=== PATIENT | male | born 1955 | race Caucasian/White ===

== ENCOUNTER 2017-01-19 10:02 | Inpatient (IN) | payer OTHER, MEDICAID ==
[2017-01-19] MEDS ORDERED: TRANEXAMIC ACID 1,000 MG in NS 100 ML IV ONE (10:08)
--- NOTE | 2017-01-19 10:12 | EDPHY ---
H & P Constitutional: Initial Vital Signs Temperature (C) 38.5 C H 01/19/17 10:07 O2 Delivery Mode Non-Rebreather Mask O2 (L/minute) 10 Medical Decision Making ED Course/Re-evaluation: CHIEF COMPLAINT: Hematemesis, AMS, hypotension. HISTORY OF PRESENT ILLNESS: The patient is a 62-year-old male with baseline dementia who presents via EMS from [facility] for several days of hematemesis. Today his mental status became acutely altered. Per EMS his only complaint is lower back pain and he mostly is able to respond only with yes and no. EMS was unable to palpate a blood pressure. He is not anticoagulated on blood-thinners. EMS established 2 IVs and administered 250ml NS en route. They placed him on 6L nasal cannula oxygen as he was in the 70s on room air. History severely limited due to the patient's clinical condition. REVIEW OF SYSTEMS: Unobtainable secondary to patient's clinical condition. PHYSICAL EXAM: HR, BP, O2 Sat, RR. Temp noted General Appearance: Alert, groaning. Head: Atraumatic without scalp tenderness or obvious injury Eyes: Pupils equal, round, reactive to light and accommodation, EOMI, no trauma , no injection. Ears: Clear bilaterally, no perforation, normal landmarks Nose: Atraumatic, no rhinorrhea, clear. Throat: There is no erythema or exudates, no lesions, normal tonsils, mucus membranes moist. Neck: Supple, 2+ carotid upstroke, nontender, no lymphadenopathy. Respiratory: No retractions, no distress, no wheezes, and no accessory muscle use. Lungs are clear to auscultation bilaterally. Cardiovascular: Regular rate and rhythm, no murmurs, rubs, or gallops. Bilateral carotid, radial, dorsalis pedis, and posterior tibial pulses intact. Good capillary refill all extremities. Gastrointestinal: Abdomen is soft, non-distended, no masses, no rebound, no guarding, no peritoneal signs. Abdomen exquisitely tender. Musculoskeletal: Normal active ROM of all extremities. Mottling of lower extremities. Lower extremities warm. Neurological: The patient has normal DTRs and non-focal cranial nerves, motor, sensory, and cerebellar exam. Answers basic questions and follows basic commands. Skin: No rashes, good turgor, no nodules on palpation. Past medical history:TBI with hemiplegia, dementia, CVAs. Past surgical history: Unknown. Family history:Non-contributory. Social history:Lives at [facility]. DIAGNOSTICS/PROCEDURES/CRITICAL CARE TIME: Study: CT of the chest/abdomen/pelvis. Indication: Hematemesis, hypotension. Results: 1. Fluid distention of the esophagus and stomach without evidence of obstruction. 2. Probable mild ileus. 3. Large stool ball in the rectum. 4. Bronchitis with mucous plugging and basilar atelectasis with tiny effusions. 5. Nodular consolidation in the superior segment left lower lobe, most likely inflammatory or infectious. Follow up CT is recommended in 3 months to document resolution. 6. Small volume of ascites. 7. Additional findings as above. The study was read by the radiologist, Dr. Sol. I viewed the images myself on the PACS system. DIFFERENTIAL DIAGNOSIS: The differential diagnosis for the patient's upper GI bleeding included but was not limited to ulcer disease, gastritis, Holley-Kumari tear, and esophageal varices. MEDICAL DECISION MAKING: I met EMS on arrival and obtained a report from the associate designer. The patient was awake and groaning, but unable to answer any questions. He follows basic commands well. On exam his lower extremities are mottled and his abdomen is exquisitely tender. He has no palpable blood pressure and has thready pulses. He is tachycardic at 160. The patient is a DNR and it is unclear whether initiating mass transfusion protocol with blood products would be against his wishes. 1006: Mass transfusion protocol initiated. TXA 1gm IV ordered to be administered over 10 minutes. Another 1gm will be administered over 8 hours. Labs ordered. Blood bank contacted. 1010: I consulted with Case Management and the ER Director concerning the ethics of resuscitation. They both believe transfusion resuscitation is indicated and ethical. 2 units O- ordered. 1014: ISTAT creatinine is 2.6, probably due to multiple days of hyperperfusion. Abdomen/pelvis and chest non-contrast CTs ordered. The blood bank has been contacted multiple times at this point. Rectal temp 38.5. 1019: Blood at bedside with 3 units O+. Right groin Cordis catheter placed by myself. This is a resuscitate line. Blood pressure now 94/61. 1033: Protonix 80mg IV Drip administered. Plasma at bedside. Patient sent to CT. 1044: Case Management has spoken to the patient's brother who reports that mass transfusion was an acceptable measure to take. Patient's Hct is 51, which could be due to bleeding for a few days and being severely dehydrated. 1126: Consulted with Dr. John, hospitalist. He accepts admission. 1133: Consulted with Dr. Davis, GI. He will scope the patient in the next half hour. 1136: On NG tube placement the patient vomited a large amount of blood. I spent a total of 45 minutes of critical care time including but not limited to obtaining history, performing a physical exam, ordering interventions and the bedside monitoring of those interventions, collecting and interpreting tests and discussion with consultants but not including time spent performing procedures. - Data Points Laboratory Results: 01/19/17 01/19/17 01/19/17 10:30 10:30 10:30 WBC Pending RBC Pending Hgb Pending POC Hgb Hct Pending POC Hct MCV Pending MCH Pending MCHC Pending RDW Pending Plt Count Pending MPV Pending Neut % (Auto) Pending Lymph % (Auto) Pending Ellis % (Auto) Pending Eos % (Auto) Pending Baso % (Auto) Pending Nucleat RBC Rel Count Pending Absolute Neuts (auto) Pending Absolute Lymphs (auto) Pending Absolute Monos (auto) Pending Absolute Eos (auto) Pending Absolute Basos (auto) Pending Absolute Nucleated RBC Pending Immature Gran % Pending Immature Gran # Pending PT Pending INR Pending APTT Pending TEG Specimen Type Pending TEG Sample Type Pending TEG R Time Pending TEG K Time Pending TEG Alpha Angle Pending TEG Max Amplitude Pending Fibrinogen Pending Puncture Site pCO2 pO2 Total CO2 ABG pH ABG O2 Saturation ABG Base Excess POC Sodium POC Potassium POC Chloride Bicarbonate POC BUN POC Creatinine POC Glucose Ionized Calcium Patient ABO/Rh Antibody Screen Crossmatch IS Only 01/19/17 01/19/17 01/19/17 10:30 10:10 10:05 WBC RBC Hgb POC Hgb 17.3 gm/dL gm/dL (14.5-17.3) Hct POC Hct 51 % H % (42.8-50.6) MCV MCH MCHC RDW Plt Count MPV Neut % (Auto) Lymph % (Auto) Ellis % (Auto) Eos % (Auto) Baso % (Auto) Nucleat RBC Rel Count Absolute Neuts (auto) Absolute Lymphs (auto) Absolute Monos (auto) Absolute Eos (auto) Absolute Basos (auto) Absolute Nucleated RBC Immature Gran % Immature Gran # PT INR APTT TEG Specimen Type TEG Sample Type TEG R Time TEG K Time TEG Alpha Angle TEG Max Amplitude Fibrinogen Puncture Site Pending pCO2 Pending pO2 Pending Total CO2 Pending ABG pH Pending ABG O2 Saturation Pending ABG Base Excess Pending POC Sodium Pending 151 mEq/L H mEq/L (134-144) POC Potassium Pending 3.5 mEq/L mEq/L (3.3-5.0) POC Chloride 114 mEq/L H mEq/L (96-108) Bicarbonate Pending POC BUN 47 mg/dL H mg/dL (7-23) POC Creatinine 2.6 mg/dL H mg/dL (0.8-1.5) POC Glucose 113 mg/dL H mg/dL (70-100) Ionized Calcium Pending Patient ABO/Rh A POSITIVE Antibody Screen NEGATIVE Crossmatch IS Only See Detail Medications Given: Discontinued Medications Tranexamic Acid 1,000 mg/ (Sodium Chloride) 110 mls @ 660 mls/hr IV ONCE ONE Stop: 01/19/17 10:17 Last Admin: 01/19/17 10:12 Dose: 110 mls Point of Care Test Results: 01/19/17 10:05 POC Sodium 151 H POC Potassium 3.5 POC Chloride 114 H POC BUN 47 H POC Creatinine 2.6 H POC Glucose 113 H Departure - Departure Disposition: [facility] Inpatient Acute Clinical Impression: GI bleed Qualifiers: GI bleed type/associated pathology: unspecified gastrointestinal hemorrhage type Qualified Code(s): K92.2 - Gastrointestinal hemorrhage, unspecified Hypotension Qualifiers: Hypotension type: unspecified hypotension type Qualified Code(s): I95.9 - Hypotension, unspecified Condition: Fair Report Scribed for: Willy Sousa Report Scribed by: Vladimir Becerra Date of Report: 01/19/17 Time of Report: 10:16
[2017-01-19] MEDS ORDERED: TRANEXAMIC ACID 1,000 MG in NS 500 ML IV ONE (10:26)
[2017-01-19] MEDS ORDERED: LIDOCAINE 2% 5 ML SDV ONE (10:31)
[2017-01-19] MEDS ORDERED: LETS SOLN TOPICAL 1 EA SYR TP ONE (10:32)
--- NOTE | 2017-01-19 10:56 | CPEKG ---
Heart Rate: 140 RR Interval: 429 P-R Interval: 136 QRSD Interval: 70 QT Interval: 280 QTC Interval: 427 P [place]: 17 QRS [place]: 43 T Wave [place]: 59 EKG Severity - ABNORMAL ECG - EKG Impression: SINUS TACHYCARDIA EKG Impression: LOW VOLTAGE IN FRONTAL LEADS EKG Impression: BORDERLINE R WAVE PROGRESSION, ANTERIOR LEADS EKG Impression: BORDERLINE T ABNORMALITIES, ANTERIOR LEADS EKG Impression: BORDERLINE ST ELEVATION, INFERIOR LEADS Electronically Signed By: Willy Sousa 19-Jan-2017 14:37:01
[2017-01-19] MEDS ORDERED: PANTOPRAZOLE SODIUM 80 MG in NS 100 ML IV SCH (11:00)
[2017-01-19 11:58] LABS: ADD MORPH? NO; ATYPICAL LYMPHOCYTE FLAG 0 (0-99); FRAGMENT RBC FLAG 0 (0-99); HEMATOCRIT 47.1 % (40.0-51.0); HEMOGLOBIN 16.2 g/dL (13.7-17.5); LIPEMIA HEMOLYSIS FLAG 90 (0-99); MEAN CELL HEMOGLOBIN 30.1 pg (27.9-34.1); MEAN CELL HEMOGLOBIN CONCENTR. 34.4 g/dL (32.4-36.7); MEAN CELL VOLUME 87.4 fL (81.5-99.8); MEAN PLATELET VOLUME 10.6 fL (8.7-11.7); PLATELET CLUMPS FLAG 0 (0-99); PLATELET COUNT 202 10^3/uL (150-400); RED BLOOD CELL COUNT 5.39 10^6/uL (4.40-6.38)
[2017-01-19 12:04] LABS: ADD DIFF? YES; ADD SCAN? NO; LEFT SHIFT FLG 300 (0-99)
[2017-01-19 12:14] LABS: INR 1.23 (0.83-1.16); PROTIME(PATIENT) 15.5 SEC (12.0-15.0)
[2017-01-19 12:34] LABS: GIANT PLATELETS PRESENT; LARGE PLATELETS PRESENT; PLATELET ESTIMATE ADEQUATE (ADEQ)
[2017-01-19] MEDS ORDERED: PROMETHAZINE HCL 25 MG/ML INJ IVP PRN (12:35)
[2017-01-19] MEDS ORDERED: ONDANSETRON 4 MG/2 ML VIAL IVP PRN (12:35)
[2017-01-19] MEDS ORDERED: ERTAPENEM 0.5 GM in NS 100 ML IV SCH (13:00)
[2017-01-19] MEDS ORDERED: ERTAPENEM 1 GM in NS 100 ML IV SCH (13:00)
--- NOTE | 2017-01-19 13:08 | GHP ---
DATE OF ADMISSION: 01/19/2017 CHIEF COMPLAINT: Hematemesis. HISTORY OF PRESENT ILLNESS: This is a 62-year-old male who was transported to the emergency department by EMS from [facility] after he reportedly had several days of hematemesis. During the time of my exam, the patient is confused, making it impossible to obtain a history from the patient. The history was obtained via review of the ER chart. Apparently the patient had become more confused this morning. He does have a history of a traumatic brain injury. Per EMS, the patient reported some low back pain and was only able to respond with yes and no answers. In the field, they were unable to obtain a blood pressure. He was started on IV fluids en route. On initial presentation to the emergency department, his blood pressure was too low to read. He was noted to be febrile. An NGT was placed where he was found to have a large amount of blood in his stomach. He was subsequently transfused with 2 units of packed red blood cells and 3 units of FFP, as well as 1 unit of platelets. PAST MEDICAL HISTORY: Traumatic brain injury with hemiplegia, dementia, stroke. PAST SURGICAL HISTORY: Unobtainable. HOME MEDICATIONS: Unobtainable. ALLERGIES: Unobtainable. SOCIAL HISTORY: The patient resides at [facility]. Other social history was unobtainable. REVIEW OF SYSTEMS: Comprehensive 10-point review of systems was attempted. However, this was unobtainable due to the patient's mentation. PHYSICAL EXAM: VITAL SIGNS: Blood pressure 99/88, pulse of 141, respiratory rate 25, O2 saturation is 92% on 10 L non-rebreather, temperature currently afebrile, T-max 38.5. GENERAL: Ill appearing. HEAD: Normocephalic, atraumatic. EYES: Are PERRLA. MOUTH: Moist mucous membranes. NECK: Supple. CARDIOVASCULAR: Tachycardic, S1 and S2. No JVD. PULMONARY: Lungs are clear with diminished breath sounds bilaterally. No wheezes or rales. ABDOMEN: Is slightly distended. There is tenderness to palpation, without guarding or rebound. Bowel sounds are hyperactive. EXTREMITIES: No lower extremity edema. No clubbing or cyanosis. NEURO: Unable to assess since the patient is not following commands. SKIN: Clear. No rashes. DIAGNOSTICS: WBC is 4.3, hemoglobin 16.2, hematocrit 47.1, platelets 202. INR 1.23. Fibrinogen was high. ABGs pending. Sodium 151, potassium 3.5, chloride 114, BUN 47, creatinine 2.6, glucose 113. EKG, which I visualized and personally interpreted, shows sinus tachycardia with T-wave abnormalities in V1 and V2, with some subtle ST elevation in leads [address] of the abdomen and pelvis shows fluid distention of the esophagus and stomach, without evidence for obstruction. There is a mild ileus. A large stool ball in the rectum. There is a nodular consolidation in the superior segment of the left lower lobe. Refer to report for full details. ASSESSMENT: This is a 62-year-old male with a history of traumatic brain injury , who presents with: 1. Shock, most likely hemorrhagic given his reported hematemesis vs sepsis 2. Acute encephalopathy, history of traumatic brain injury. 3. Hypernatremia likely due to hypovolemia and dehydration. 4. Suspected acute kidney injury with a BUN of 47 and creatinine of 2.6. 5. Suspected upper gastrointestinal bleed, with CT of the abdomen showing fluid distention of the esophagus and stomach. 6. Nodular consolidation in the superior segment of the left lower lobe of unclear etiology. Query aspiration pneumonia 7. Possible sepsis PLAN: 1. Admit to the intensive care unit. 2. Dr. Son Davis from [facility] has been consulted for endoscopy. 3. Start IV Protonix as well as octreotide. 4. Check LFTs. 5. Will start maintenance hypotonic fluids and monitor sodium. 6. Will attempt to obtain his medical records. 7. Avoid nephrotoxins and monitor kidney function. 8. Send urinalysis. 9. Send Blood Cultures, Lactic Acid, and start empiric Invanz for possible aspiration pneumonia 10. Will hold chemical DVT prophylaxis in the setting of suspected acute bleeding. /[id number]/MODL MTDD
[2017-01-19] MEDS ORDERED: NS 1,000 ML IV ONE ×3 (13:16→21:11)
[2017-01-19 13:24] LABS: HEMOGLOBIN 17.2 g/dL (13.7-17.5)
[2017-01-19 14:07] LABS: ALANINE AMINOTRANSFERASE 30 IU/L (21-72); ALBUMIN 3.2 g/dL (3.5-5.0); ALKALINE PHOSPHATASE 71 IU/L (38-126); ASPARTATE AMINOTRANSFERASE 24 IU/L (17-59); BILIRUBIN,TOTAL 4.9 mg/dL (0.1-1.4); BILIRUBIN-CONJUGATED 2.4 mg/dL (0.0-0.5); BILIRUBIN-UNCONJUGATED 2.5 mg/dL (0.0-1.1); TOTAL PROTEIN 6.4 g/dL (6.3-8.2)
[2017-01-19 14:15] LABS: COLOR AMBER; LEUKOCYTE ESTERASE,URINE 2+ (NEGATIVE); NITRITE,URINE NEGATIVE (NEGATIVE)
[2017-01-19 14:18] LABS: LACGHOST ORDER
[2017-01-19 14:19] LABS: TROPONIN I < 0.012 ng/mL (0-0.034)
[2017-01-19 14:55] LABS: BACTERIA 3+ /hpf (NONE SEEN); MUCUS 4+ /lpf (NONE-1+); RBC,URINE 15-25 /hpf (0-3); WBC,URINE 50-182 /hpf (0-3)
[2017-01-19 15:00] LABS: HYALINE CASTS >182 /lpf (0-1)
[2017-01-19] MEDS ORDERED: NS 1,000 ML BAG *FOR SEPSIS ORDER SET ONLY IV ONE (15:37)
[2017-01-19] MEDS ORDERED: PROPOFOL/EMULSION 500 MG/50 ML BOTTLE IV ONE (16:16)
[2017-01-19] MEDS ORDERED: fentaNYL 100 MCG/2 ML INJ ONE (16:16)
--- NOTE | 2017-01-19 16:39 | GCON ---
GI CONSULTATION DATE OF CONSULTATION: 01/19/2017 REFERRING PHYSICIAN: Ricardo John MD REASON FOR CONSULTATION: Acute melena and hematemesis. HISTORY OF PRESENT ILLNESS: The patient is a 62-year-old gentleman who was transferred to the emergency room today from [facility] after several days of hematemesis. He was noted to be hypotensive on arrival in the emergency room. NG tube was placed, and a large amount of blood was lavaged out of the stomach. He was passing melena. He received 2 units of packed red blood cells and 3 units of FFP as well as 1 unit of platelets acutely for resuscitation as well as aggressive IV hydration. He was transferred to the intensive care unit. I was asked to see the patient by Dr. John for further evaluation and treatment of his GI bleed. The patient was unable to communicate with me today and could not respond coherently. We do not have records of his medications at [facility] nor his allergies. PAST MEDICAL HISTORY: We do know that his past medical history is significant for posttraumatic brain injury with left hemiplegia, dementia, and stroke. PAST SURGICAL HISTORY: Unknown. SOCIAL HISTORY: Resides at [facility]. He does not smoke tobacco or drink alcohol. FAMILY HISTORY: Patient unable to respond to my questions. REVIEW OF SYSTEMS: Unobtainable for a comprehensive review of systems. PHYSICAL EXAMINATION: VITAL SIGNS: On my examination today, temperature 37.6 Celsius, pulse 141, blood pressure 99/88, respiratory rate was 25, O2 saturation 92% on 10 L. GENERAL: He is a disheveled-appearing gentleman with blood caked on his mouth and chest. He is looking in acute distress. INTEGUMENT : Skin cool, moist. HEENT: Head atraumatic, normocephalic. Pupils equal, round, reactive to light. EOMs intact. Nares patent. NG tube in right naris. Mucous membranes moist. Dentition poor. NECK: Supple. Trachea midline. LYMPHATIC: No palpable cervical or axillary adenopathy. PULMONARY: Clear to percussion and auscultation. CARDIOVASCULAR: Rapid rate. Normal S1, S2, without murmur. Peripheral pulses strong bilaterally. No pedal edema. GASTROINTESTINAL TRACT: Positive bowel sounds. No liver edge or spleen tip palpable. No masses or tenderness or rebound noted. MUSCULOSKELETAL: No deformity of the joints. Moved all 4 extremities. NEURO: Patient did have weakness in the left lower extremity. Otherwise, alert, though unable to tell if the patient was oriented to time, person, or place. LABS: White count 4.3, hemoglobin 16.2, hematocrit 47.1, platelets 202,000. PT 15.5, INR 1.23, PTT 26. Sodium 151, potassium 3.5, chloride 114, creatinine 2.6, BUN 47, glucose 113, total bilirubin 4.9, conjugated 2.4, unconjugated 2.5 , AST 24, ALT 30, ALP 71, albumin 3.2, total protein 6.4, troponin I less than 0.012. IMPRESSION: 1. Acute upper gastrointestinal bleed. Rule out peptic ulcer disease. 2. Acute renal insufficiency. 3. Elevated bilirubin with normal AST and ALT, query Gilbert. 4. Traumatic brain injury with status post hemiplegia, dementia, and stroke. RECOMMENDATIONS: 1. IV PPI therapy. 2. Aggressive IV hydration. 3. Esophagogastroduodenoscopy urgently. Due to critical nature of patient's medical condition we will need to perform emergent EGD endotracheal intubation to protect airway and manage medical instability. /[id number]/MODL MTDD
[2017-01-19] MEDS ORDERED: MIDAZOLAM 2 MG/2 ML VIAL ONE (16:50)
--- NOTE | 2017-01-19 16:50 | POSTOPPROG ---
Post Op Note Date of Operation: 01/19/17 Surgeon: Son Davis Viscosity Inspector: None Anesthesiologist: Dr Lal Anesthesia: Other (Specify) (IV General with ET intubation.) Pre-op Diagnosis: Melena, hematemesis. Post-op Diagnosis: 1. Same 2. Proximal gastric ulcer with bleed(clipped) 3. esophageal ulcers Indication: Hematemesis, melena. Procedure: EGD with endoclip x 2 and bx. Findings: 1. with bleed(endo clipped x 2). 2. Multiple esophageal ulcers. Inf/Abcess present in the surg proc area at time of surgery?: No Depth: Superfical (Skin SQ) EBL: Minimal Complications: None Specimen(s): Random gastric for h. pylori.
[2017-01-19] MEDS ORDERED: DEXMEDETOMIDINE HCL 400 MCG in NS 100 ML IV SCH ×2 (17:00→20:00)
--- NOTE | 2017-01-19 19:09 | GPN ---
DATE OF PROCEDURE: 01/19/2017 PROCEDURE PERFORMED: Esophagogastroduodenoscopy with control of hemorrhage (Endoclip x2) and random biopsies. PREOPERATIVE DIAGNOSIS: Melena, hematemesis, and post hemorrhagic anemia. POSTOPERATIVE DIAGNOSIS: 1. Melena, hematemesis, and post hemorrhagic anemia. 2. Proximal gastric ulceration on lesser curve of the body of the stomach with visible vessel. Hem ostasis achieved with the endoclipping x2. 3. Confluent ulcerations of the distal one-third of the esophagus without active bleeding. 4. Patchy erythema and granularity of the antrum. Biopsy to rule out Helicobacter pylori gastritis . CLINICAL HISTORY/INDICATION: The patient is a 62-year-old gentleman who was admitted to the [facility] through the emergency room today after several days' history of hematemesis as well as new onset o f melena. He had an NG tube placed with a large amount of blood lavaged from the stomach. He recei trever 2 units of packed red blood cells and 3 units of FFP as well as 1 unit of platelets with aggress joanne IV resuscitation. He was admitted to the ICU and brought to the endoscopy unit emergently for EGD for evaluation of hi s bleed. The patient is noncommunicative and no known [id number] or family member available. Therefore, procedure was permitted as an emergent procedure and medically necessary. PREOPERATIVE MEDICATIONS: General anesthetic and endotracheal intubation, per Dr. Lal. PROCEDURE FINDINGS: GIF-J 180 video endoscope was inserted into the oropharynx and passed to the pr oximal esophagus under direct visualization. The cervical esophagus and body of the esophagus appea red normal. The distal one-third of the esophagus showed diffuse erythema, granularity, and conflue nt ulcerations without stigmata of bleed or active bleeding. The scope was passed in the stomach. The cardia of the stomach appeared normal. In the body along the lesser curve there was an 8 mm ketan meter ulceration with an adherent red clot with active oozing of bright red blood. Hemostasis was a chieved with application of 2 Endoclips. The remainder of the body of the stomach appeared normal. Antrum showed some patchy erythema and gr anularity. Random antral and fundic biopsies were obtained and placed in formalin to rule out H pyl corinne gastritis. The pyloric channel was deformed. The duodenal bulb showed some shallow erosions in the proximal bowel. The distal bulb appeared normal as did the duodenal sweep to the 3rd portion o f the duodenum. There was no retained blood in the stomach or duodenum on exam today. The scope was withdrawn and removed. The patient tolerated the procedure well and was sent to the r ecovery room in satisfactory condition. IMPRESSION: 1. Hematemesis, melena, and post hemorrhagic anemia secondary to proximal gastric ulceration. Hemo stasis achieved with endoclipping x2. 2. Patchy antral gastritis. Biopsy to rule out Helicobacter pylori. 3. There was mild duodenitis. RECOMMENDATIONS: 1. Clear liquid diet. Advance as tolerated. 2. Protonix 40 mg p.o. b.i.d. 3. Serial H and H. 4. We will follow with you. /[id number]/MODL
[2017-01-19 20:21] LABS: HEMATOCRIT 49.5 % (40.0-51.0); HEMOGLOBIN 16.7 g/dL (13.7-17.5)
[2017-01-19] MEDS ORDERED: PANTOPRAZOLE SODIUM 40 MG TAB PO SCH (21:00)
[2017-01-19] MEDS: PANTOPRAZOLE SODIUM 40 MG in NS 100 ML IV SCH (21:20)
[2017-01-19] MEDS: LORazepam 2 MG/ML INJ IVP PRN (21:20)
[2017-01-19] MEDS: NOREPINEPHRINE BITARTRATE 4 MG in D5W 500 ML IV SCH (22:12)
[2017-01-19 22:15] LABS: ALANINE AMINOTRANSFERASE 22 IU/L (21-72); ALBUMIN 1.9 g/dL (3.5-5.0); ALKALINE PHOSPHATASE 43 IU/L (38-126); ANION GAP 13 mEq/L (8-16); ASPARTATE AMINOTRANSFERASE 17 IU/L (17-59); BILIRUBIN,TOTAL 2.4 mg/dL (0.1-1.4); CALCIUM 7.1 mg/dL (8.5-10.4); CARBON DIOXIDE 19 mEq/l (22-31); CHLORIDE 114 mEq/L (97-110); GLOMERULAR FILTRATION RATE 34; GLUCOSE 82 mg/dL (70-100); POTASSIUM 3.8 mEq/L (3.5-5.2); SODIUM 146 mEq/L (134-144); TOTAL PROTEIN 4.2 g/dL (6.3-8.2)
[2017-01-19] MEDS: PIPERACILLIN/TAZO 3.375 GM/DEX 50 ML IV SCH (22:15)
[2017-01-19 22:28] LABS: BILIRUBIN-CONJUGATED 1.6 mg/dL (0.0-0.5); BILIRUBIN-UNCONJUGATED 0.8 mg/dL (0.0-1.1)
[2017-01-19] MEDS: VANCOMYCIN HCL/NORMAL SALINE 250 ML IV SCH (23:01)
[2017-01-19] MEDS ORDERED: VASOPRESSIN/DEXTROSE 250 ML IV SCH (23:03)
[2017-01-19] MEDS ORDERED: ALBUMIN 25% 200 ML IV ONE (23:03)
[2017-01-19] MEDS ORDERED: ALBUMIN 25% 100 ML SOLN IV ONE (23:11)
--- NOTE | 2017-01-19 23:15 | HOSPPROG ---
Hospitalist Progress Note Assessment/Plan: 62 yo M admitted w hematemesis now w hypotension, elevated lactate c/w severe sepsis sepsis: source is unclear- urine vs lungs vs other received ertapenem, now on vanc zosyn as lives at SNF on levophed start vasopressin give albumin hypotension: as above repeat trop 35' crit care time Subjective: patient w persistent hypotension despite aggressive volume repletion Objective: Vital Signs Temp Pulse Resp BP Pulse Ox 36.9 C 103 H 20 86/61 L 96 01/19/17 23:00 01/19/17 23:00 01/19/17 23:00 01/19/17 23:00 01/19/17 23:00 Laboratory Results 01/19/17 20:13 01/19/17 21:52 01/18/17 01/19/17 01/20/17 05:59 05:59 05:59 Intake Total 7610 Output Total 130 Balance 7480 PT 15.5 SEC (12.0-15.0) H 01/19/17 11:43 INR 1.23 (0.83-1.16) H 01/19/17 11:43 - Physical Exam Constitutional: other (intubated, sedated) Cardiovascular: tachycardia Respiratory: no respiratory distress Genitourinary: burk in urethra Skin: warm Neurologic: No AAOx3 ICD10 Worksheet Patient Problems: Problems Problem Status Onset GI bleed Acute Hypotension Acute
[2017-01-19 23:18] LABS: BASE EXCESS -8.8 mEq/L (-2.5-2.5); BICARBONATE 16 mEq/L (22-26); MEASURED OXYGEN SATURATION 97 % (92-95); PCO2 31 mmHg (34-38); PO2 94 mmHg (65-75); TCO2 17 mEq/L (23-27)
[2017-01-19 23:19] LABS: END TIDAL CO2 27; O2 CONCENTRATIION 65 % (0-100); P/F RATIO 145 RATIO; SIMV YES
[2017-01-19 23:20] LABS: PATIENT RATE 20; PRESSURE SUPPORT 10
[2017-01-19] MEDS ORDERED: methylPREDNISolone SOD SUCC 125 MG/2 ML VIAL IVP ONE (23:35)
[2017-01-19] MEDS ORDERED: methylPREDNISolone SOD SUCC 125 MG/2 ML VIAL ONE (23:36)
[2017-01-20] MEDS: NS 1,000 ML IV SCH ×4 (00:06→23:00)
[2017-01-20] MEDS: NOREPINEPHRINE BITARTRATE 4 MG in D5W 500 ML IV SCH ×2 (01:49→05:12)
[2017-01-20] MEDS: LEVOTHYROXINE 75 MCG TAB PO SCH (04:59)
[2017-01-20] MEDS: LORazepam 2 MG/ML INJ IVP PRN ×2 (04:59→21:05)
[2017-01-20 05:03] LABS: ABSOLUTE NRBC COUNT 0.02 10^3/uL (0-0.01); ADD MORPH? NO; ADD SCAN? YES; ATYPICAL LYMPHOCYTE FLAG 0 (0-99); FRAGMENT RBC FLAG 0 (0-99); HEMOGLOBIN 9.6 g/dL (13.7-17.5); LIPEMIA HEMOLYSIS FLAG 80 (0-99); MEAN CELL HEMOGLOBIN 29.4 pg (27.9-34.1); MEAN CELL VOLUME 91.7 fL (81.5-99.8); MEAN PLATELET VOLUME 10.7 fL (8.7-11.7); NRBC-AUTO% 0.4 % (0.0-0.2); PLATELET CLUMPS FLAG 10 (0-99); PLATELET COUNT 94 10^3/uL (150-400); RED BLOOD CELL COUNT 3.27 10^6/uL (4.40-6.38); RED CELL DISTRIBUTION WIDTH 15.3 % (11.5-15.2)
[2017-01-20 05:06] LABS: LEFT SHIFT FLG 300 (0-99)
[2017-01-20] MEDS: PIPERACILLIN/TAZO 3.375 GM/DEX 50 ML IV SCH ×3 (05:09→22:04)
[2017-01-20 05:52] LABS: ADD DIFF? YES; SCAN POSITIVE
[2017-01-20 05:57] LABS: TOXIC GRANULATION PRESENT
[2017-01-20 06:30] LABS: HEMATOCRIT 41.7 % (40.0-51.0); HEMOGLOBIN 14.3 g/dL (13.7-17.5); MEAN CELL HEMOGLOBIN CONCENTR. 34.3 g/dL (32.4-36.7); MEAN CELL VOLUME 87.6 fL (81.5-99.8); RED BLOOD CELL COUNT 4.76 10^6/uL (4.40-6.38); RED CELL DISTRIBUTION WIDTH 14.7 % (11.5-15.2)
[2017-01-20 06:52] LABS: ALANINE AMINOTRANSFERASE 24 IU/L (21-72); ALBUMIN 2.5 g/dL (3.5-5.0); ALKALINE PHOSPHATASE 32 IU/L (38-126); ANION GAP 12 mEq/L (8-16); ASPARTATE AMINOTRANSFERASE 16 IU/L (17-59); BILIRUBIN,TOTAL 2.6 mg/dL (0.1-1.4); CARBON DIOXIDE 18 mEq/l (22-31); CHLORIDE 116 mEq/L (97-110); CREATININE 1.4 mg/dL (0.7-1.3); GLOMERULAR FILTRATION RATE 52; GLUCOSE 184 mg/dL (70-100); POTASSIUM 3.3 mEq/L (3.5-5.2); SODIUM 146 mEq/L (134-144); TOTAL PROTEIN 4.8 g/dL (6.3-8.2)
[2017-01-20 07:07] LABS: BILIRUBIN-CONJUGATED 1.7 mg/dL (0.0-0.5); BILIRUBIN-UNCONJUGATED 0.9 mg/dL (0.0-1.1)
[2017-01-20] MEDS: PANTOPRAZOLE SODIUM 40 MG in NS 100 ML IV SCH ×2 (08:55→21:01)
[2017-01-20] MEDS ORDERED: NON-FORMULARY NEW DRUG (Escitalopram Oxalate [Lexapro] 5 MG) PO SCH (09:00)
[2017-01-20] MEDS ORDERED: NS 1,000 ML IV ONE (09:16)
[2017-01-20] MEDS ORDERED: PROTOCOL MAGNESIUM 1 DOSE IV PRN (09:28)
[2017-01-20] MEDS ORDERED: PROTOCOL CALCIUM 1 DOSE IV PRN (09:28)
[2017-01-20] MEDS ORDERED: PROTOCOL K PHOSPHATE 1 DOSE IV PRN (09:28)
[2017-01-20] MEDS ORDERED: PROTOCOL POTASSIUM 1 DOSE MISC PRN (09:28)
--- NOTE | 2017-01-20 09:31 | HOSPPROG ---
Hospitalist Progress Note Assessment/Plan: # shock: Seems combination septic/hypovolemic; persistent lactic acidosis - check echocardiogram # sepsis with shock - on levophed - source unclear - may be abdominal, urinary, pulmonary - continue broad spectrum antibiotics # acute GI hemorrhage due to proximal gastric ulcer status post clipping; also esophageal ulcer seen - continue Protonix # acute respiratory failure: Check chest x-ray; weaning per Pulmonary # JOHANA - improved today # LLL nodular consolidation - ?pna; needs f/u imaging # hypernatremia # abd pain - ?constipation; worrisome given ongoing lactate; low threshold to reimage; follow for now - consider laxatives # DNR - was intubated for EGD, remains intubated currently; need to contact family/[facility] [place] for more information # ppx - SCDs ## 40 mins critical care time Subjective: Intubated; status post upper endoscopy with clip placed on gastric ulcer, also esophageal ulcers seen; started on pressors last night Objective: Vital Signs Temp Pulse Resp BP Pulse Ox 37.4 C 74 20 115/73 96 01/20/17 09:00 01/20/17 09:00 01/20/17 09:00 01/20/17 09:00 01/20/17 09:00 Laboratory Results 01/20/17 06:26 01/20/17 06:26 01/19/17 01/20/17 01/21/17 05:59 05:59 05:59 Intake Total 9796 1058 Output Total 530 175 Balance 9266 883 PT 15.5 SEC (12.0-15.0) H 01/19/17 11:43 INR 1.23 (0.83-1.16) H 01/19/17 11:43 Vitals reviewed Awakens easily and follows commands Regular rate and rhythm, no murmurs rubs or gallops No respiratory distress, diminished breath sounds bilateral bases, no wheezes or rales Abdomen soft grimaces with palpation, questionable rebound tenderness; no masses appreciated ICD10 Worksheet Patient Problems: Problems Problem Status Onset GI bleed Acute Hypotension Acute
--- NOTE | 2017-01-20 09:43 | SOAPPROG ---
SOAP Progress Note Assessment/Plan: Assessment: 1. Hypotension on pressors, IV fluid challenge, and broad spectrum antibiotics with abdominal distension and guarding and elevated Lactic acid worrisome for bowel infarction. 2. UGI bleed secondary to proximal gastric ulcer; stable. 3. Post hemorrhagic anemia; stable. 4. Respiratory failure on vent. 5. ARF. Plan: 1. 3 way Abdomen X-Ray. 2. Aggressive management of BP. 3. Prognosis poor. 01/20/17 09:50 Subjective: CC: UGI bleed. Interval HPI: Patient on vent. Unresponsive to voice. Withdraws with pain to abdominal pressure. No melena today. Objective: Vital Signs Temp Pulse Resp BP Pulse Ox 37.4 C 74 20 115/73 96 01/20/17 09:00 01/20/17 09:00 01/20/17 09:00 01/20/17 09:00 01/20/17 09:00 Laboratory Results 01/20/17 06:26 01/20/17 06:26 01/19/17 01/20/17 01/21/17 05:59 05:59 05:59 Intake Total 9796 1058 Output Total 530 175 Balance 9266 883 PT 15.5 SEC (12.0-15.0) H 01/19/17 11:43 INR 1.23 (0.83-1.16) H 01/19/17 11:43 Physical Exam - Physical Exam General Appearance: unresponsive Respiratory: lungs clear, normal breath sounds Cardiac/Chest: regular rate, rhythm, other (hypotensive with s BP in 80's on pressors.) Skin: normal color (responsive to pain only.), warm/dry ICD10 Worksheet Patient Problems: Problems Problem Status Onset GI bleed Acute Hypotension Acute
[2017-01-20 10:56] LABS: IONIZED CALCIUM 1.12 MMOL/L (1.12-1.30)
[2017-01-20 11:00] LABS: HEMATOCRIT 40.6 % (40.0-51.0); HEMOGLOBIN 13.4 g/dL (13.7-17.5)
[2017-01-20] MEDS ORDERED: ATROPINE SULFATE 1 MG/10 ML SYR ONE (11:09)
[2017-01-20 11:18] LABS: MAGNESIUM 1.6 mg/dL (1.6-2.3)
--- NOTE | 2017-01-20 11:18 | CPEKG ---
Heart Rate: 50 RR Interval: 1200 QRSD Interval: 78 QT Interval: 444 QTC Interval: 405 QRS [place]: 25 T Wave [place]: 39 EKG Severity - ABNORMAL ECG - EKG Impression: JUNCTIONAL ESCAPE RHYTHM EKG Impression: LOW VOLTAGE THROUGHOUT EKG Impression: JUNCTIONAL ESCAPE IS NEW IN COMPARISON TO PRIOR Electronically Signed By: Lonny Colunga 21-Jan-2017 08:45:17
[2017-01-20] MEDS: POTASSIUM Cl (KCl) 50 ML IV SCH ×5 (11:35→17:24)
--- NOTE | 2017-01-20 13:09 | ECHO ---
[id number] + + [address] : : [place] [address] : : [phone] + + Adult Echocardiographic Report + -------+ :Name: ALEX LA SStudy Date: 01/20/2017 09:48 AM BP: 96/61 mmHg : : Hospital Admission Number: [id number] Locati on: 252: :: 1955 Gender: Male Height: 67 in : :Age: 62 yrs Race: WH Weight: 152 lb : :Reason For Study: Eval LV Fx : : BSA: 1.8 meter s2 : :History: Hypotension, Upper GI Bleed, Intubated : + -------+ MMode/2D Measurements \T\ Calculations IVSd: 0.85 cm LVIDd: 4.5 cm FS: 35.8 % MV Diam: 3.1 cm LVPWd: 0.94 cm LVIDs: 2.9 cm EDV(Teich): 91.2 ml ESV(Teich): 31.5 ml EF(Teich): 65.5 % Ao root diam: 3.2 cm LVOT diam: 2.0 cm ACS: 2.0 cm LVOT area: 3.1 cm2 Normal Measurement Values: + + :LVIDd (3.5-5.7cm) IVSd (0.6-1.1cm) LVPWd (0.6-1.1cm) Aortic Root (2.0-3.7cm)Left Atrium (1.5-4.0cm): :LV Vol(d) (76-115ml) LV Vol(s) (29-48ml) Ejec Fraction (50-65%)PV Erasmo (0.6- 1.2m/s) TV Erasmo (0.4-1.0m/s) : :MV E Erasmo (0.8-1.0m/s)MV A Erasmo (0.3-1.0m/s)LVOT Erasmo (0.7-1.2m/s) Asc Ao Erasmo ( 0.9-1.8m/s) : + + Doppler Measurements \T\ Calculations MV E max erasmo: MV V2 mean: Ao mean PG: LV V1 max: 73.1 cm/sec 44.4 cm/sec 3.2 mmHg 56.8 cm/sec MV A max erasmo: MV mean PG: Ao V2 mean: LV V1 max P.6 cm/sec 0.89 mmHg 87.5 cm/sec 1.3 mmHg MV E/A: 2.3 MV V2 VTI: 15.8 cm Ao V2 VTI: 20.3 cm LV V1 mean PG: MV area (1 diam): 0.77 mmHg LEO(I,D): 1.8 cm2 LV V1 mean: 7.5 cm2 39.8 cm/sec MVA(VTI): 2.3 cm2 LV V1 VTI: 11.8 cm MV Flow area(1diam): 7.5 cm2 MR max erasmo: MR(RF 1 diam): SV(MV 1 diam): PA V2 max: 324.4 cm/sec 35.8 % 119.3 ml 57.0 cm/sec MR max PG: SI(MV 1 diam): PA max P.1 mmHg 1.3 mmHg 66.3 ml/m2 SV(LVOT): 37.0 ml TR max erasmo: RF(MV,Ao)(1 diam): - 236.2 cm/sec 0.35 TR max PG: RF(MV,LVOT)(1diam): 22.3 mmHg 0.69 RAP systole: 5.0 mmHg RVSP(TR): 27.3 mmHg Left Ventricle The left ventricle is normal in size. There is normal left ventricular wall thickness. The left ventricular ejection fraction is normal. Ejection Fraction = 66%. The left ventricular wall motion is normal. Right Ventricle The right ventricle is normal in size and function. Atria The left atrial size is normal. Right atrial size is normal. Mitral Valve The mitral valve is normal. There is no mitral valve stenosis. There is moderate mitral regurgitation. Tricuspid Valve There is trace to mild tricuspid regurgitation. Right ventricular systolic pressure is normal. Aortic Valve The aortic valve is normal in structure and function. There is no aortic stenosis. There is no aortic insufficiency. Pulmonic Valve The pulmonic valve is normal in structure and function. There is no pulmonic valvular regurgitation. Great Vessels The aortic root is normal size. Pericardium/Pleural There is no pericardial effusion. Conclusion A complete two-dimensional transthoracic echocardiogram was performed (2D, M-mode, Doppler and color flow Doppler). Off axis views obtained. The left ventricular ejection fraction is normal. Ejection Fraction = 66%. The left ventricular wall motion is normal. There is moderate mitral regurgitation. There is trace to mild tricuspid regurgitation. Right ventricular systolic pressure is normal. The aortic valve is normal in structure and function. There is no pericardial effusion. No prior echo Patient will require routine surveillance of his MR (annual echoes) Final Reading Physician: Dr Lashonda Waters electronically signed on 01/20/2017 01:08 PM Ordering Physician: Phan Hardin Performed By: Alexandro Castillo, MAYTECS
[2017-01-20 13:37] LABS: PLATELET ESTIMATE DECREASED (ADEQ)
[2017-01-20] MEDS: ESCITALOPRAM OXALATE 10 MG TAB PO SCH (13:50)
[2017-01-20 15:27] LABS: POTASSIUM 3.4 mEq/L (3.5-5.2)
--- NOTE | 2017-01-20 16:21 | PDINTPN ---
[place] Progress Note Assessment/Plan: Assessment: UGI Bleed due to Gastric Ulcer. S/P clipping. No evidence of further bleeding. Possible Sepsis: No apparent source, but had elevated lactate and hypotension, now both improved, but still on NE to support BP. Respiratory Failure: Stable on vent. Not quite awake enough to protect airways, and still requiring BP support. Anemia: Due to acute blood loss. Improved after transfusion Ileus/constipation: Likely due to shock. No evidence of bowel ischemia on CT Plan: Continue NE, wean as tolerated. Extubate when more alert and HD stable. Follow H/H, lactate. Enema for possible impaction. 01/20/17 16:26 Subjective: Intubated, minimally responsive Objective: Vital Signs Temp Pulse Resp BP Pulse Ox 36.7 C 67 20 110/74 96 01/20/17 15:00 01/20/17 15:00 01/20/17 15:00 01/20/17 15:00 01/20/17 15:00 Laboratory Results 01/20/17 10:50 01/20/17 13:57 01/19/17 01/20/17 01/21/17 05:59 05:59 05:59 Intake Total 9796 1058 Output Total 530 175 Balance 9266 883 PT 15.5 SEC (12.0-15.0) H 01/19/17 11:43 INR 1.23 (0.83-1.16) H 01/19/17 11:43 Laboratory Tests 01/19/17 01/19/17 01/20/17 20:13 23:36 11:00 VBG Lactic Acid 4.5 H 4.[address] Abd: No abscess. Mild bowel distension c/w ileus. Moderate rectal stool. Bibasilar atelectasis with small effusions. Images reviewed. Physical Exam - Physical Exam General Appearance: alert, no apparent distress EENT: normal ENT inspection Neck: normal inspection Respiratory: lungs clear, normal breath sounds Cardiac/Chest: normal peripheral pulses, regular rate, rhythm, No edema Abdomen: normal bowel sounds, non-tender, soft Skin: normal color, warm/dry Extremities: non-tender, normal inspection Neuro/Psych: No alert, No normal mood/affect ICD10 Worksheet Patient Problems: Problems Problem Status Onset GI bleed Acute Hypotension Acute
--- NOTE | 2017-01-20 18:38 | GCON ---
PULMONARY/CRITICAL CARE CONSULTATION DATE OF CONSULTATION: 01/19/2017 REFERRING PHYSICIAN: Gera Walton DO REASON FOR REFERRAL: Evaluation and management of hypotension and shock. HISTORY: The patient is a 62-year-old male with a history of traumatic brain injury, stroke, and de mentia who was brought to the emergency department from [facility] after having several days of h ematemesis. He apparently was more confused on the morning of admission, and also had some low back pain. EMS was unable to obtain a blood pressure when they first picked him up, but blood pressure was obtained in the emergency department. An NG tube was placed and he was found to have a large am ount of blood in his stomach. He was transfused red blood cells, FFP, and platelets, and transferre d to the intensive care unit with hypotension. PAST MEDICAL HISTORY: 1. Traumatic brain injury. 2. Dementia. 3. Stroke. MEDICATIONS: At the time of admission include: Melatonin, Synthroid, [place], Lexapro, Dulcolax, and Zofran. ALLERGIES: None. SOCIAL HISTORY: The patient is a resident at [facility]. No other social history is obtainable. REVIEW OF SYSTEMS: A 10-point review of systems could not be obtained because of the patient's ment al status. PHYSICAL EXAMINATION: GENERAL: The patient is awake and alert, making some efforts to speak but is dysarthric and speech is unintelligible. VITAL SIGNS: A blood pressure is 100/74, pulse is 133, o xygen saturations ARE 100% on high-flow oxygen. The patient is afebrile. HEENT: Normocephalic and atraumatic. NECK: No adenopathy. Trachea is midline. CHEST: Clear to auscultation. CARDIAC: Regular, tachycardia without murmur. ABDOMEN: Soft, nontender. Bowel sounds are present. EXTREMI TIES: No clubbing, cyanosis, or edema. LABORATORY: Sodium is 151 with a potassium of 3.5, a creatinine is 2.6, BUN is 47, a glucose is 113 . An INR is 1.2. A hemoglobin 16.2 with a platelet count of 202 and white blood count of 4.3. A u rinalysis shows 50-180 white blood cells and 15-25 red blood cells with large number of hyalin casts and 3+ bacteria. A chest x-ray shows decompression of the stomach following placement of an esopha gogastric tube. There is a mild basilar atelectasis. A CT scan of the chest shows distention of th e esophagus and stomach with some bronchitis and mucus plugging. Images reviewed. A CT scan of the abdomen shows a large amount of stool in the rectum and probable mild ileus. A serum lactate is 4. 7. An electrocardiogram shows sinus tachycardia with poor R-wave progression. Images reviewed. ASSESSMENT: 1. Acute gastrointestinal bleed. The patient had hypotension and now has tachycardia, likely relat ed to acute blood loss. Sepsis is also possible with the elevated lactate. There is no apparent so urce for sepsis at this point. 2. Acute upper gastrointestinal blood loss. This could be due to a gastric ulcer or a Holley-Carson s tear. 3. Hypernatremia. This is likely due to a hypovolemia. 4. Acute kidney injury. The patient has elevated creatinine. His baseline creatinine is not known , but at least a component is likely related to acute blood loss. 5. Encephalopathy. The patient apparently does have some cognitive deficits, but is apparently not a baseline currently either. RECOMMENDATIONS: 1. Proceed with upper endoscopy by Gastroenterology. 2. Start IV Protonix. 3. Aggressive fluid resuscitation. NICOM monitor will be used to help guide therapy. 4. Start empiric Invanz. /[id number]/MODL
[2017-01-20 18:50] LABS: HEMATOCRIT 40.3 % (40.0-51.0); HEMOGLOBIN 13.4 g/dL (13.7-17.5)
[2017-01-20] MEDS: VANCOMYCIN HCL/NORMAL SALINE 250 ML IV SCH (23:51)
[2017-01-21] MEDS: LORazepam 2 MG/ML INJ IVP PRN ×3 (01:46→08:27)
[2017-01-21] MEDS: NS 1,000 ML IV SCH (04:13)
[2017-01-21 04:19] LABS: IONIZED CALCIUM 1.22 MMOL/L (1.12-1.30)
[2017-01-21 04:24] LABS: % IMMATURE GRANULYOCYTES 0.3 % (0.0-1.1); ABSOLUTE IMMATURE GRANULOCYTES 0.04 10^3/uL (0.00-0.10); ADD DIFF? NO; ADD MORPH? NO; ADD SCAN? YES; ATYPICAL LYMPHOCYTE FLAG 0 (0-99); FRAGMENT RBC FLAG 0 (0-99); HEMATOCRIT 38.7 % (40.0-51.0); LIPEMIA HEMOLYSIS FLAG 80 (0-99); MEAN CELL HEMOGLOBIN 29.1 pg (27.9-34.1); MEAN CELL HEMOGLOBIN CONCENTR. 33.6 g/dL (32.4-36.7); MEAN CELL VOLUME 86.6 fL (81.5-99.8); MEAN PLATELET VOLUME 10.9 fL (8.7-11.7); PLATELET CLUMPS FLAG 0 (0-99); PLATELET COUNT 70 10^3/uL (150-400); RED BLOOD CELL COUNT 4.47 10^6/uL (4.40-6.38)
[2017-01-21 04:43] LABS: ALANINE AMINOTRANSFERASE 34 IU/L (21-72); ALBUMIN 2.3 g/dL (3.5-5.0); ALKALINE PHOSPHATASE 46 IU/L (38-126); ANION GAP 10 mEq/L (8-16); ASPARTATE AMINOTRANSFERASE 27 IU/L (17-59); BILIRUBIN,TOTAL 1.9 mg/dL (0.1-1.4); CALCIUM 7.7 mg/dL (8.5-10.4); CARBON DIOXIDE 19 mEq/l (22-31); CHLORIDE 118 mEq/L (97-110); GLOMERULAR FILTRATION RATE > 60; GLUCOSE 109 mg/dL (70-100); MAGNESIUM 1.6 mg/dL (1.6-2.3); POTASSIUM 3.4 mEq/L (3.5-5.2); SODIUM 147 mEq/L (134-144); TOTAL PROTEIN 4.6 g/dL (6.3-8.2)
[2017-01-21 04:55] LABS: LEFT SHIFT FLG 300 (0-99)
[2017-01-21 05:39] LABS: SCAN POSITIVE
[2017-01-21] MEDS: LEVOTHYROXINE 75 MCG TAB PO SCH (05:39)
[2017-01-21] MEDS: POTASSIUM Cl (KCl) 50 ML IV SCH ×6 (05:39→20:13)
[2017-01-21 05:44] LABS: PLATELET ESTIMATE DECREASED (ADEQ)
[2017-01-21 05:46] LABS: TOXIC GRANULATION PRESENT
[2017-01-21] MEDS: PIPERACILLIN/TAZO 3.375 GM/DEX 50 ML IV SCH ×3 (07:32→18:13)
[2017-01-21] MEDS: ESCITALOPRAM OXALATE 10 MG TAB PO SCH (07:36)
[2017-01-21] MEDS ORDERED: MAGNESIUM SULF 1 GM/DEXTROSE 100 ML IV ONE (07:45)
[2017-01-21] MEDS: PANTOPRAZOLE SODIUM 40 MG in NS 100 ML IV SCH ×2 (08:26→22:10)
--- NOTE | 2017-01-21 08:35 | CPEKG ---
Heart Rate: 66 RR Interval: 909 P-R Interval: 128 QRSD Interval: 82 QT Interval: 416 QTC Interval: 436 P [place]: 0 QRS [place]: -6 T Wave [place]: 20 EKG Severity - BORDERLINE ECG - EKG Impression: SINUS RHYTHM EKG Impression: LOW VOLTAGE THROUGHOUT Electronically Signed By: Reyes Yang 21-Jan-2017 15:34:30
[2017-01-21] MEDS ORDERED: VANCOMYCIN HCL/NORMAL SALINE 250 ML IV SCH ×2 (10:00→11:00)
--- NOTE | 2017-01-21 11:50 | PDINTPN ---
Hand Worker Progress Note Assessment/Plan: Assessment: UGI Bleed due to Gastric Ulcer. S/P clipping. No evidence of further bleeding. Possible Sepsis: No apparent source, but had elevated lactate and hypotension, now both improved, on low dose DA Respiratory Failure: Stable on vent. More alert, doing well on CPAP so far. Anemia: Due to acute blood loss. Improved after transfusion and stable. Ileus/constipation: Likely due to shock. No evidence of bowel ischemia on CT Plan: Wean DA as tolerated. Extubate. Continue Zosyn for now, stop Vanco. 01/21/17 11:50 Subjective: Intubated, alert but not following commands reliably Objective: Vital Signs Temp Pulse Resp BP Pulse Ox 36.3 C 83 18 96/68 L 95 01/21/17 11:00 01/21/17 11:00 01/21/17 11:00 01/21/17 11:00 01/21/17 11:00 Laboratory Results 01/21/17 04:00 01/21/17 04:00 01/20/17 01/21/17 01/22/17 05:59 05:59 05:59 Intake Total 9796 6852 Output Total 530 1275 Balance 9266 5577 PT 15.5 SEC (12.0-15.0) H 01/19/17 11:43 INR 1.23 (0.83-1.16) H 01/19/17 11:43 Physical Exam - Physical Exam General Appearance: alert, no apparent distress EENT: normal ENT inspection Neck: normal inspection Respiratory: lungs clear, normal breath sounds Cardiac/Chest: tachycardia, No edema Abdomen: normal bowel sounds, non-tender, soft Skin: normal color, warm/dry Extremities: normal inspection Neuro/Psych: alert ICD10 Worksheet Patient Problems: Problems Problem Status Onset GI bleed Acute Hypotension Acute
[2017-01-21 12:30] LABS: POTASSIUM 2.9 mEq/L (3.5-5.2)
--- NOTE | 2017-01-21 14:47 | SOAPPROG ---
SOAP Progress Note Assessment/Plan: Assessment: 1. UGI bleed secondary to proximal gastric ulcer; stable. 2. Post hemorrhagic anemia; stable. 4. Respiratory failure, resolved and off vent. 5. ARF, resolved. Plan: 1. MORENITA. Son Davis MD 01/21/17 14:48 Subjective: CC: with bleed. Interval HPI: Patient alert and baseline however non-communicative. Extubated. Objective: Vital Signs Temp Pulse Resp BP Pulse Ox 36.3 C 86 17 88/63 L 96 01/21/17 11:00 01/21/17 12:01 01/21/17 12:00 01/21/17 12:00 01/21/17 12:01 Laboratory Results 01/21/17 04:00 01/21/17 11:51 01/20/17 01/21/17 01/22/17 05:59 05:59 05:59 Intake Total 9796 6852 Output Total 530 1275 Balance 9266 5577 PT 15.5 SEC (12.0-15.0) H 01/19/17 11:43 INR 1.23 (0.83-1.16) H 01/19/17 11:43 Laboratory Tests 01/19/17 01/19/17 01/19/17 13:10 14:50 18:06 Absolute Seg Neuts VBG Lactic Acid 6.0 H 4.7 H 3.9 H Sodium Chloride Carbon Dioxide Anion Gap BUN Creatinine Total Bilirubin AST ALT Alkaline Phosphatase Total Protein Albumin 01/19/17 01/19/17 01/20/17 20:13 23:36 04:50 Absolute Seg Neuts 0.72 L VBG Lactic Acid 4.5 H 4.0 H Sodium Chloride Carbon Dioxide Anion Gap BUN Creatinine Total Bilirubin AST ALT Alkaline Phosphatase Total Protein Albumin 01/21/17 01/21/17 04:00 04:00 Absolute Seg Neuts VBG Lactic Acid 1.1 D Sodium 147 H Chloride 118 H Carbon Dioxide 19 L Anion Gap 10 BUN 32 H Creatinine 1.0 Total Bilirubin 1.9 H AST 27 ALT 34 Alkaline Phosphatase 46 Total Protein 4.6 L Albumin 2.3 L Physical Exam - Physical Exam General Appearance: alert, no apparent distress Respiratory: lungs clear, normal breath sounds Cardiac/Chest: regular rate, rhythm Abdomen: normal bowel sounds, non-tender, distended Skin: normal color, warm/dry Neuro/Psych: alert (at patoemt's baseline) ICD10 Worksheet Patient Problems: Problems Problem Status Onset GI bleed Acute Hypotension Acute
--- NOTE | 2017-01-21 16:07 | HOSPPROG ---
Hospitalist Progress Note Assessment/Plan: # shock: Seems combination septic/hypovolemic; persistent lactic acidosis * echo ok * off dopamine # sepsis with shock - source unclear - ct abd/pelvis normal - continue broad spectrum antibiotics for now # acute GI hemorrhage due to proximal gastric ulcer status post clipping; also esophageal ulcer seen - continue Protonix # acute respiratory failure: extubated # JOHANA - improved today # LLL nodular consolidation * follow up ct in 3 months # hypernatremia # abd pain * seems to have resolved * benign exam # Full code - was DNR # ppx - SCDs Subjective: extubated. not very conversive Objective: Vital Signs Temp Pulse Resp BP Pulse Ox 36.3 C 73 21 H 90/63 L 100 01/21/17 11:00 01/21/17 14:00 01/21/17 14:00 01/21/17 14:00 01/21/17 14:00 Laboratory Results 01/21/17 04:00 01/21/17 11:51 01/20/17 01/21/17 01/22/17 05:59 05:59 05:59 Intake Total 9796 6852 Output Total 530 1275 Balance 9266 5577 PT 15.5 SEC (12.0-15.0) H 01/19/17 11:43 INR 1.23 (0.83-1.16) H 01/19/17 11:43 - Physical Exam Constitutional: no apparent distress, appears nourished, not in pain Eyes: anicteric sclera, EOMI Ears, Nose, Mouth, Throat: moist mucous membranes, hearing normal Cardiovascular: regular rate and rhythym, no murmur, rub, or gallop Respiratory: no respiratory distress, no rales or rhonchi, clear to auscultation Skin: warm Neurologic: No AAOx3 Psychiatric: other (traumatic brain injury), No interacting appropriately ICD10 Worksheet Patient Problems: Problems Problem Status Onset GI bleed Acute Hypotension Acute
[2017-01-21 18:31] LABS: POTASSIUM 1.7 mEq/L (3.5-5.2)
[2017-01-21 20:36] LABS: POTASSIUM 5.1 mEq/L (3.5-5.2)
[2017-01-22] MEDS: PIPERACILLIN/TAZO 3.375 GM/DEX 50 ML IV SCH ×5 (00:04→23:26)
[2017-01-22] MEDS: NS 1,000 ML IV SCH ×2 (00:24→06:52)
[2017-01-22 03:43] LABS: HEMATOCRIT 42.4 % (40.0-51.0); HEMOGLOBIN 14.1 g/dL (13.7-17.5); MEAN CELL HEMOGLOBIN 29.3 pg (27.9-34.1); MEAN CELL HEMOGLOBIN CONCENTR. 33.3 g/dL (32.4-36.7); MEAN CELL VOLUME 88.1 fL (81.5-99.8); RED BLOOD CELL COUNT 4.81 10^6/uL (4.40-6.38); RED CELL DISTRIBUTION WIDTH 15.6 % (11.5-15.2)
[2017-01-22 03:52] LABS: IONIZED CALCIUM 1.31 MMOL/L (1.12-1.30)
[2017-01-22 04:06] LABS: ANION GAP 8 mEq/L (8-16); CALCIUM 7.8 mg/dL (8.5-10.4); CARBON DIOXIDE 16 mEq/l (22-31); CHLORIDE 123 mEq/L (97-110); CREATININE 0.9 mg/dL (0.7-1.3); GLOMERULAR FILTRATION RATE > 60; GLUCOSE 77 mg/dL (70-100); POTASSIUM 4.3 mEq/L (3.5-5.2); SODIUM 147 mEq/L (134-144)
[2017-01-22] MEDS: LEVOTHYROXINE 75 MCG TAB PO SCH (07:14)
[2017-01-22] MEDS: ESCITALOPRAM OXALATE 10 MG TAB PO SCH (07:34)
[2017-01-22] MEDS: PANTOPRAZOLE SODIUM 40 MG in NS 100 ML IV SCH ×2 (08:25→21:19)
--- NOTE | 2017-01-22 09:33 | PDINTPN ---
Speaker Wirer Progress Note Assessment/Plan: Assessment: UGI Bleed due to Gastric Ulcer. S/P clipping. No evidence of further bleeding. Possible Sepsis: No apparent source, but had elevated lactate and hypotension, now both improved. Off pressors. WBC up, but no fever Respiratory Failure: Resolved. On RA with good sats Anemia: Due to acute blood loss. Improved after transfusion and stable. Ileus/constipation: Likely due to shock. No evidence of bowel ischemia on CT Plan: ST evaluation, ? swallow. Continue Zosyn for now, probably stop soon. ? Tx to M/S 01/22/17 09:32 Subjective: More alert, no complaints. Objective: Vital Signs Temp Pulse Resp BP Pulse Ox 36.5 C 89 19 93/56 L 97 01/22/17 04:00 01/22/17 08:00 01/22/17 08:00 01/22/17 08:00 01/22/17 08:00 Laboratory Results 01/22/17 03:30 01/22/17 03:30 01/21/17 01/22/17 01/23/17 05:59 05:59 05:59 Intake Total 6852 3357.2 Output Total 1275 450 Balance 5577 2907.2 PT 15.5 SEC (12.0-15.0) H 01/19/17 11:43 INR 1.23 (0.83-1.16) H 01/19/17 11:43 Physical Exam - Physical Exam General Appearance: alert, no apparent distress EENT: normal ENT inspection Neck: full range of motion Respiratory: chest non-tender, lungs clear, normal breath sounds Cardiac/Chest: regular rate, rhythm, No edema Abdomen: normal bowel sounds, non-tender, soft Skin: normal color, warm/dry Extremities: normal inspection Neuro/Psych: alert, normal mood/affect, oriented x 3 ICD10 Worksheet Patient Problems: Problems Problem Status Onset GI bleed Acute Hypotension Acute
--- NOTE | 2017-01-22 11:14 | SOAPPROG ---
SOAP Progress Note Assessment/Plan: Assessment: 1. UGI bleed secondary to proximal gastric ulcer; stable. 2. Post hemorrhagic anemia; stable. 3. Tolerating po. To be transferred to medical bed today. Plan: Will sign off today. Son Davis MD 01/22/17 11:11 Subjective: CC: bleed. Interval HPI: No melena. Patient non-communicative but appears in no distress. Tolerating po. Objective: Vital Signs Temp Pulse Resp BP Pulse Ox 36.5 C 95 18 114/99 H 94 01/22/17 04:00 01/22/17 10:00 01/22/17 10:00 01/22/17 10:00 01/22/17 10:00 Laboratory Results 01/22/17 03:30 01/22/17 03:30 01/21/17 01/22/17 01/23/17 05:59 05:59 05:59 Intake Total 6852 3357.2 Output Total 1275 450 Balance 5577 2907.2 PT 15.5 SEC (12.0-15.0) H 01/19/17 11:43 INR 1.23 (0.83-1.16) H 01/19/17 11:43 Physical Exam - Physical Exam General Appearance: no apparent distress Respiratory: lungs clear, normal breath sounds Cardiac/Chest: regular rate, rhythm Abdomen: normal bowel sounds, non-tender, soft Skin: normal color, warm/dry ICD10 Worksheet Patient Problems: Problems Problem Status Onset GI bleed Acute Hypotension Acute
[2017-01-22] MEDS: HYDROmorphONE/DILAUDID 1 MG/ML SYR IVP PRN ×3 (12:20→20:34)
--- NOTE | 2017-01-22 18:28 | HOSPPROG ---
Hospitalist Progress Note Assessment/Plan: # shock: Seems combination septic/hypovolemic; persistent lactic acidosis * echo ok * off dopamine # sepsis with shock - source unclear - ct abd/pelvis normal - continue broad spectrum antibiotics for now # acute GI hemorrhage due to proximal gastric ulcer status post clipping; also esophageal ulcer seen - continue Protonix # acute respiratory failure: extubated # JOHANA - improved today # LLL nodular consolidation * follow up ct in 3 months # hypernatremia # abd pain * seems to have resolved * benign exam # Full code - was DNR # ppx - SCDs Subjective: complaining of back pain Objective: Vital Signs Temp Pulse Resp BP Pulse Ox 36.5 C 105 H 16 106/76 88 L 01/22/17 04:00 01/22/17 16:00 01/22/17 16:00 01/22/17 16:00 01/22/17 16:00 Laboratory Results 01/22/17 03:30 01/22/17 03:30 01/21/17 01/22/17 01/23/17 05:59 05:59 05:59 Intake Total 6852 3357.2 858 Output Total 1275 450 Balance 5577 2907.2 858 PT 15.5 SEC (12.0-15.0) H 01/19/17 11:43 INR 1.23 (0.83-1.16) H 01/19/17 11:43 discussed with pulanne tele pers rev/int - nsr - Physical Exam Constitutional: no apparent distress, appears nourished, not in pain Eyes: anicteric sclera, EOMI Ears, Nose, Mouth, Throat: moist mucous membranes, hearing normal, ears appear normal Cardiovascular: regular rate and rhythym, no murmur, rub, or gallop Respiratory: no respiratory distress, no rales or rhonchi, clear to auscultation Gastrointestinal: normoactive bowel sounds, soft, non-tender abdomen, no palpable masses Skin: warm ICD10 Worksheet Patient Problems: Problems Problem Status Onset GI bleed Acute Hypotension Acute
[2017-01-23 04:46] LABS: % IMMATURE GRANULYOCYTES 1.4 % (0.0-1.1); ABSOLUTE IMMATURE GRANULOCYTES 0.19 10^3/uL (0.00-0.10); ADD DIFF? NO; ADD MORPH? NO; ADD SCAN? NO; ATYPICAL LYMPHOCYTE FLAG 90 (0-99); FRAGMENT RBC FLAG 0 (0-99); HEMATOCRIT 51.2 % (40.0-51.0); HEMOGLOBIN 16.9 g/dL (13.7-17.5); LEFT SHIFT FLG 50 (0-99); LIPEMIA HEMOLYSIS FLAG 80 (0-99); MEAN CELL HEMOGLOBIN 29.3 pg (27.9-34.1); MEAN CELL VOLUME 88.7 fL (81.5-99.8); MEAN PLATELET VOLUME 10.4 fL (8.7-11.7); PLATELET CLUMPS FLAG 30 (0-99); RED BLOOD CELL COUNT 5.77 10^6/uL (4.40-6.38); RED CELL DISTRIBUTION WIDTH 16.4 % (11.5-15.2)
[2017-01-23 04:57] LABS: PLATELET COUNT 42 10^3/uL (150-400)
[2017-01-23 05:02] LABS: ALANINE AMINOTRANSFERASE 36 IU/L (21-72); ALBUMIN 2.3 g/dL (3.5-5.0); ALKALINE PHOSPHATASE 58 IU/L (38-126); ANION GAP 11 mEq/L (8-16); ASPARTATE AMINOTRANSFERASE 28 IU/L (17-59); BILIRUBIN,TOTAL 1.9 mg/dL (0.1-1.4); CALCIUM 8.3 mg/dL (8.5-10.4); CARBON DIOXIDE 17 mEq/l (22-31); CHLORIDE 121 mEq/L (97-110); CREATININE 0.9 mg/dL (0.7-1.3); GLOMERULAR FILTRATION RATE > 60; GLUCOSE 50 mg/dL (70-100); MAGNESIUM 1.9 mg/dL (1.6-2.3); POTASSIUM 4.5 mEq/L (3.5-5.2); SODIUM 149 mEq/L (134-144); TOTAL PROTEIN 5.1 g/dL (6.3-8.2)
[2017-01-23] MEDS: LEVOTHYROXINE 75 MCG TAB PO SCH (05:41)
[2017-01-23] MEDS: PIPERACILLIN/TAZO 3.375 GM/DEX 50 ML IV SCH ×2 (05:56→12:43)
[2017-01-23] MEDS: HYDROmorphONE/DILAUDID 1 MG/ML SYR IVP PRN ×3 (05:59→18:28)
[2017-01-23 06:44] LABS: PLATELET ESTIMATE DECREASED (ADEQ)
[2017-01-23] MEDS: PANTOPRAZOLE SODIUM 40 MG in NS 100 ML IV SCH ×2 (08:34→20:29)
[2017-01-23] MEDS ORDERED: 1/2 NS 1,000 ML IV SCH (10:00)
[2017-01-23] MEDS: ESCITALOPRAM OXALATE 10 MG TAB PO SCH (10:23)
--- NOTE | 2017-01-23 12:12 | HOSPPROG ---
Hospitalist Progress Note Assessment/Plan: # acute GI hemorrhage due to proximal gastric ulcer status post clipping; also esophageal ulcer seen - continue Protonix # dysphagia * failed swallow today. * Give 1 more day before considering alternate feeding # JOHANA - improved # LLL nodular consolidation * follow up ct in 3 months # hypernatremia * cont 1/2 ns # abd pain * seems to have resolved * benign exam # thrombocytopenia * possibly d/t zosyn - will dc # sepsis with shock - resolved * probably urine source * change to ceftriaxone # uti # acute respiratory failure: extubated # Full code - was DNR # ppx - SCDs Subjective: complaining of dry mouth Objective: Vital Signs Temp Pulse Resp BP Pulse Ox 37 C 118 H 16 118/70 89 L 01/23/17 07:27 01/23/17 07:27 01/23/17 07:27 01/23/17 07:27 01/23/17 10:54 Laboratory Results 01/23/17 04:25 01/23/17 04:25 01/22/17 01/23/17 01/24/17 05:59 05:59 05:59 Intake Total 3357.2 858 Output Total 450 Balance 2907.2 858 PT 15.5 SEC (12.0-15.0) H 01/19/17 11:43 INR 1.23 (0.83-1.16) H 01/19/17 11:43 - Physical Exam Constitutional: no apparent distress, appears nourished, not in pain Eyes: anicteric sclera, EOMI Ears, Nose, Mouth, Throat: dry mucous membranes Cardiovascular: regular rate and rhythym, no murmur, rub, or gallop Gastrointestinal: normoactive bowel sounds, soft, non-tender abdomen, no palpable masses Skin: warm Neurologic: other ( right facial droop), No AAOx3 Psychiatric: not encephalopathic ICD10 Worksheet Patient Problems: Problems Problem Status Onset GI bleed Acute Hypotension Acute
[2017-01-23] MEDS ORDERED: D5W 1/2 NS W/ 20 KCl/L 1,000 ML IV SCH (14:30)
[2017-01-24] MEDS: LEVOTHYROXINE 75 MCG TAB PO SCH (04:22)
[2017-01-24] MEDS ORDERED: FUROSEMIDE 40 MG/4 ML VIAL IVP ONE (05:30)
[2017-01-24] MEDS: PANTOPRAZOLE SODIUM 40 MG in NS 100 ML IV SCH ×2 (07:49→20:51)
[2017-01-24] MEDS: ESCITALOPRAM OXALATE 10 MG TAB PO SCH (07:49)
[2017-01-24] MEDS: HYDROmorphONE/DILAUDID 1 MG/ML SYR IVP PRN ×2 (07:55→19:38)
[2017-01-24 08:36] LABS: ADD DIFF? YES; ADD MORPH? NO; ADD SCAN? NO; ATYPICAL LYMPHOCYTE FLAG 60 (0-99); FRAGMENT RBC FLAG 0 (0-99); HEMATOCRIT 49.2 % (40.0-51.0); HEMOGLOBIN 16.8 g/dL (13.7-17.5); LEFT SHIFT FLG 30 (0-99); LIPEMIA HEMOLYSIS FLAG 90 (0-99); MEAN CELL HEMOGLOBIN 28.8 pg (27.9-34.1); MEAN CELL HEMOGLOBIN CONCENTR. 34.1 g/dL (32.4-36.7); MEAN CELL VOLUME 84.4 fL (81.5-99.8); MEAN PLATELET VOLUME 10.9 fL (8.7-11.7); PLATELET CLUMPS FLAG 0 (0-99); PLATELET COUNT 62 10^3/uL (150-400); RED BLOOD CELL COUNT 5.83 10^6/uL (4.40-6.38); RED CELL DISTRIBUTION WIDTH 15.8 % (11.5-15.2)
[2017-01-24 08:52] LABS: ALANINE AMINOTRANSFERASE 31 IU/L (21-72); ALBUMIN 2.4 g/dL (3.5-5.0); ALKALINE PHOSPHATASE 60 IU/L (38-126); ANION GAP 11 mEq/L (8-16); ASPARTATE AMINOTRANSFERASE 24 IU/L (17-59); BILIRUBIN,TOTAL 2.3 mg/dL (0.1-1.4); CALCIUM 8.3 mg/dL (8.5-10.4); CARBON DIOXIDE 19 mEq/l (22-31); CHLORIDE 118 mEq/L (97-110); CREATININE 0.8 mg/dL (0.7-1.3); GLOMERULAR FILTRATION RATE > 60; GLUCOSE 116 mg/dL (70-100); POTASSIUM 3.9 mEq/L (3.5-5.2); SODIUM 148 mEq/L (134-144); TOTAL PROTEIN 5.4 g/dL (6.3-8.2)
--- NOTE | 2017-01-24 08:52 | CPEKG ---
Heart Rate: 119 RR Interval: 504 P-R Interval: 136 QRSD Interval: 70 QT Interval: 304 QTC Interval: 428 P [place]: 26 QRS [place]: 0 T Wave [place]: 88 EKG Severity - ABNORMAL ECG - EKG Impression: SINUS TACHYCARDIA EKG Impression: VENTRICULAR PREMATURE COMPLEX EKG Impression: LOW VOLTAGE IN FRONTAL LEADS EKG Impression: ANTEROLATERAL INFARCT, AGE INDETERMINATE EKG Impression: BORDERLINE T ABNORMALITIES, ANTERIOR LEADS Electronically Signed By: Tiago Strange 24-Jan-2017 21:04:45
[2017-01-24 08:59] LABS: BILIRUBIN-CONJUGATED 1.3 mg/dL (0.0-0.5)
[2017-01-24 09:15] LABS: PLATELET ESTIMATE DECREASED (ADEQ); TOXIC GRANULATION PRESENT
[2017-01-24] MEDS ORDERED: D5W 1,000 ML IV SCH ×2 (09:30→16:00)
[2017-01-24] MEDS ORDERED: IOPAMIDOL (ISOVUE-370) 150 ML BTL IV ONE (11:35)
--- NOTE | 2017-01-24 15:05 | HOSPPROG ---
Hospitalist Progress Note Assessment/Plan: # acute GI hemorrhage due to proximal gastric ulcer status post clipping; also esophageal ulcer seen - continue Protonix # dysphagia * failed swallow today. * pulled out Dobhoff 5 minutes after placement * will get video swallow tomorrow * tachycardia * unclear cause * get CT scan rule out PE * does not appear to be septic. Will check lactate no # JOHANA - improved # LLL nodular consolidation * follow up ct in 3 months # hypernatremia * we will give a L of D5W # abd pain * seems to have resolved * benign exam # thrombocytopenia * possibly d/t zosyn * improving off the Zosyn # sepsis with shock - resolved * probably urine source * change to ceftriaxone # uti - ceftriaxone # acute respiratory failure: extubated # Full code - was DNR # ppx - SCDs Subjective: no events. Difficult to understand he has any complaints Objective: Vital Signs Temp Pulse Resp BP Pulse Ox 37.2 C 123 H 16 107/84 H 87 L 01/24/17 07:39 01/24/17 07:39 01/24/17 07:39 01/24/17 07:39 01/24/17 08:31 Laboratory Results 01/24/17 08:20 01/24/17 08:20 01/23/17 01/24/17 01/25/17 05:59 05:59 05:59 Intake Total 858 950 450 Balance 858 950 450 PT 15.5 SEC (12.0-15.0) H 01/19/17 11:43 INR 1.23 (0.83-1.16) H 01/19/17 11:43 - Physical Exam Constitutional: no apparent distress, appears nourished, not in pain, chronically ill appearing Eyes: anicteric sclera, EOMI Ears, Nose, Mouth, Throat: hearing normal, ears appear normal, dry mucous membranes Cardiovascular: regular rate and rhythym, tachycardia, edema ( 1+) Respiratory: no respiratory distress, no rales or rhonchi, clear to auscultation Gastrointestinal: normoactive bowel sounds, soft, non-tender abdomen, no palpable masses Skin: warm Neurologic: other ( CT does answer some questions. Chronic right facial droop) ICD10 Worksheet Patient Problems: Problems Problem Status Onset GI bleed Acute Hypotension Acute
[2017-01-25] MEDS: LEVOTHYROXINE 75 MCG TAB PO SCH (04:20)
[2017-01-25] MEDS: ESCITALOPRAM OXALATE 10 MG TAB PO SCH (08:55)
[2017-01-25] MEDS: PANTOPRAZOLE SODIUM 40 MG in NS 100 ML IV SCH ×2 (09:43→19:58)
[2017-01-25] MEDS: D5W 1/2 NS W/ 20 KCl/L 1,000 ML IV SCH (18:27)
[2017-01-25] MEDS: ACETAMINOPHEN 325 MG TAB PO PRN (19:58)
--- NOTE | 2017-01-25 20:58 | HOSPPROG ---
Hospitalist Progress Note Assessment/Plan: # acute GI hemorrhage due to proximal gastric ulcer status post clipping; also esophageal ulcer seen - continue Protonix # dysphagia * failed video swallow * pulled out Dobhoff 5 minutes after placement * left message with brother to discuss options * tachycardia * unclear cause * ct shows no pe * does not appear to be septic. # JOHANA - improved # ?early pna * on ceftriaxone # hypernatremia * monitor # abd pain * seems to have resolved * benign exam # thrombocytopenia * possibly d/t zosyn * improving off the Zosyn # sepsis with shock - resolved * probably urine source * change to ceftriaxone # uti - ceftriaxone # acute respiratory failure: extubated # Full code - was DNR # ppx - SCDs Subjective: not much change. thirsty Objective: Vital Signs Temp Pulse Resp BP Pulse Ox 36.6 C 117 H 15 123/82 H 94 01/25/17 16:00 01/25/17 16:00 01/25/17 16:00 01/25/17 16:00 01/25/17 16:00 Microbiology 01/19/17 18:25 Blood Culture - Final Blood 01/19/17 13:30 Blood Culture - Final Blood Laboratory Results 01/24/17 08:20 01/24/17 08:20 01/24/17 01/25/17 01/26/17 05:59 05:59 05:59 Intake Total 950 1980 570 Output Total 2 Balance 950 1978 570 PT 15.5 SEC (12.0-15.0) H 01/19/17 11:43 INR 1.23 (0.83-1.16) H 01/19/17 11:43 - Physical Exam Constitutional: no apparent distress, appears nourished, not in pain, chronically ill appearing Eyes: anicteric sclera, EOMI Ears, Nose, Mouth, Throat: dry mucous membranes Cardiovascular: tachycardia Gastrointestinal: normoactive bowel sounds, soft, non-tender abdomen, no palpable masses Skin: warm Neurologic: other (answer questions, severe dyasarthria) Psychiatric: interacting appropriately, not anxious, not encephalopathic, thought process linear ICD10 Worksheet Patient Problems: Problems Problem Status Onset GI bleed Acute Hypotension Acute
[2017-01-25 21:44] LABS: ADD DIFF? YES; ADD MORPH? NO; ADD SCAN? NO; ATYPICAL LYMPHOCYTE FLAG 30 (0-99); FRAGMENT RBC FLAG 0 (0-99); HEMATOCRIT 43.4 % (40.0-51.0); HEMOGLOBIN 14.7 g/dL (13.7-17.5); LEFT SHIFT FLG 30 (0-99); LIPEMIA HEMOLYSIS FLAG 90 (0-99); MEAN CELL HEMOGLOBIN 29.2 pg (27.9-34.1); MEAN CELL HEMOGLOBIN CONCENTR. 33.9 g/dL (32.4-36.7); MEAN CELL VOLUME 86.3 fL (81.5-99.8); PLATELET CLUMPS FLAG 10 (0-99); PLATELET COUNT 82 10^3/uL (150-400); RED BLOOD CELL COUNT 5.03 10^6/uL (4.40-6.38); RED CELL DISTRIBUTION WIDTH 15.4 % (11.5-15.2)
[2017-01-25 22:03] LABS: ALANINE AMINOTRANSFERASE 34 IU/L (21-72); ALBUMIN 2.2 g/dL (3.5-5.0); ALKALINE PHOSPHATASE 66 IU/L (38-126); ANION GAP 8 mEq/L (8-16); ASPARTATE AMINOTRANSFERASE 30 IU/L (17-59); BILIRUBIN,TOTAL 1.7 mg/dL (0.1-1.4); CALCIUM 7.7 mg/dL (8.5-10.4); CARBON DIOXIDE 23 mEq/l (22-31); CHLORIDE 111 mEq/L (97-110); CREATININE 0.6 mg/dL (0.7-1.3); GLOMERULAR FILTRATION RATE > 60; GLUCOSE 112 mg/dL (70-100); POTASSIUM 3.3 mEq/L (3.5-5.2); SODIUM 142 mEq/L (134-144); TOTAL PROTEIN 5.1 g/dL (6.3-8.2)
[2017-01-25 22:09] LABS: PLATELET ESTIMATE DECREASED (ADEQ)
[2017-01-25 22:12] LABS: GIANT PLATELETS PRESENT; HYPOCHROMIA 1+
[2017-01-26] MEDS ORDERED: POTASSIUM CL 20 MEQ TAB PO ONE (02:46)
[2017-01-26] MEDS ORDERED: PROTOCOL POTASSIUM 1 DOSE MISC PRN (02:46)
[2017-01-26] MEDS: LEVOTHYROXINE 75 MCG TAB PO SCH (04:41)
[2017-01-26 07:11] LABS: ALANINE AMINOTRANSFERASE 28 IU/L (21-72); ALBUMIN 2.3 g/dL (3.5-5.0); ALKALINE PHOSPHATASE 63 IU/L (38-126); ANION GAP 10 mEq/L (8-16); ASPARTATE AMINOTRANSFERASE 34 IU/L (17-59); BILIRUBIN,TOTAL 1.7 mg/dL (0.1-1.4); CALCIUM 7.7 mg/dL (8.5-10.4); CARBON DIOXIDE 20 mEq/l (22-31); CHLORIDE 115 mEq/L (97-110); CREATININE 0.6 mg/dL (0.7-1.3); GLOMERULAR FILTRATION RATE > 60; GLUCOSE 115 mg/dL (70-100); POTASSIUM 3.9 mEq/L (3.5-5.2); SODIUM 145 mEq/L (134-144); TOTAL PROTEIN 5.4 g/dL (6.3-8.2)
[2017-01-26] MEDS ORDERED: FUROSEMIDE 20 MG/2 ML VIAL IVP SCH (09:00)
[2017-01-26] MEDS: PANTOPRAZOLE SODIUM 40 MG in NS 100 ML IV SCH ×3 (09:12→20:41)
--- NOTE | 2017-01-26 11:25 | HOSPPROG ---
Hospitalist Progress Note Assessment/Plan: Patient is a 62-year-old male who was transferred from [facility] after he had several days of hematemesis. Today is my 1st encounter with the patient. Chart reviewed. Patient has a history of traumatic pain a brain injury with hemiplegia, dementia and stroke *acute GI hemorrhage due to proximal gastric ulcer status post clipping; also esophageal ulcer seen -PPI *dysphagia - video esophagogram shows moderate dysphagia/ scooter aspiration with larger quantities of thin liquid/ but coughed -on dysphagia diet -concerned he isn't getting adequate intake/will do calorie count -pulled out Dobhoff -spoke w patient's brother, he would like to hold off on a peg and see if he can eat * tachycardia -CTA shows no PE -afebrile -will get 12 lead EKG -get blood cx to r/o any other etiology * JOHANA - improved * ?early pna -started on ceftriaxone -blood cx from dec shows no growth -will get a chest xray today -check blood cx again w elevated wbc count * hypernatremia -monitor *abd pain -no complaints during my evaluation * thrombocytopenia -concern it was r/t zosyn which was dc * sepsis with shock -resolved -thought to be r/t urine source *uti - ceftriaxone -recheck ua/ check cx * acute respiratory failure: -had been intubated -now on 2 liters #*Full code -reviewed this today with the patient's brother, Giancarlo, who wants this * ppx - SCDs/LMWH contraindicated due to recent GI bleed *plan: PICC line/ multiple RN's have tried placing an IV -he has no access/ explained to patient's brother risk and benefits of this/ he agrees for placement/ I am very concerned the patient hasn't been eating enough, will do a calorie count, may need PEG/ check a 12 lead EKG now, get blood cx, hydrate, recheck labs in a.m., check chest xray Subjective: Don said his back hurts otherwise has no other complaints. Objective: Vital Signs Temp Pulse Resp BP Pulse Ox 37.1 C 108 H 15 121/73 H 95 01/26/17 08:00 01/26/17 08:00 01/26/17 08:00 01/26/17 08:00 01/26/17 08:00 Microbiology 01/19/17 18:25 Blood Culture - Final Blood 01/19/17 13:30 Blood Culture - Final Blood Laboratory Results 01/25/17 09:20 01/26/17 06:30 01/25/17 01/26/17 01/27/17 05:59 05:59 05:59 Intake Total 1979 1759 Output Total Balance 1977 1759 PT 15.5 SEC (12.0-15.0) H 01/19/17 11:43 INR 1.23 (0.83-1.16) H 01/19/17 11:43 - Physical Exam Constitutional: chronically ill appearing, uncomfortable, No appears nourished Eyes: PERRL Ears, Nose, Mouth, Throat: hearing normal Cardiovascular: regular rate and rhythym, tachycardia Respiratory: no respiratory distress, reduced air movement (bibasilar) Gastrointestinal: normoactive bowel sounds, soft, non-tender abdomen, ascites Skin: warm, No normal color (pale) Musculoskeletal: generalized weakness Neurologic: other (alert and oriented to himself) Psychiatric: interacting appropriately ICD10 Worksheet Patient Problems: Problems Problem Status Onset GI bleed Acute Hypotension Acute
[2017-01-26] MEDS: ESCITALOPRAM OXALATE 10 MG TAB PO SCH (11:46)
[2017-01-26 11:59] LABS: ADD DIFF? YES; ADD MORPH? NO; ADD SCAN? NO; ATYPICAL LYMPHOCYTE FLAG 0 (0-99); FRAGMENT RBC FLAG 0 (0-99); HEMATOCRIT 45.9 % (40.0-51.0); HEMOGLOBIN 15.4 g/dL (13.7-17.5); LEFT SHIFT FLG 40 (0-99); LIPEMIA HEMOLYSIS FLAG 80 (0-99); MEAN CELL HEMOGLOBIN 29.1 pg (27.9-34.1); MEAN CELL HEMOGLOBIN CONCENTR. 33.6 g/dL (32.4-36.7); MEAN CELL VOLUME 86.6 fL (81.5-99.8); MEAN PLATELET VOLUME 9.7 fL (8.7-11.7); PLATELET CLUMPS FLAG 0 (0-99); PLATELET COUNT 72 10^3/uL (150-400); RED CELL DISTRIBUTION WIDTH 15.4 % (11.5-15.2)
[2017-01-26 12:23] LABS: PLATELET ESTIMATE DECREASED (ADEQ)
[2017-01-26 12:43] LABS: COLOR PALE YELLOW; LEUKOCYTE ESTERASE,URINE NEGATIVE (NEGATIVE); NITRITE,URINE NEGATIVE (NEGATIVE)
[2017-01-26] MEDS: HYDROmorphONE/DILAUDID 1 MG/ML SYR IVP PRN (13:04)
[2017-01-26 13:09] LABS: MUCUS TRACE /lpf (NONE-1+); RBC,URINE 25-50 /hpf (0-3)
[2017-01-26] MEDS ORDERED: ALTEPLASE 2 MG VIAL IVP PRN (16:47)
--- NOTE | 2017-01-26 19:25 | CPEKG ---
Heart Rate: 117 RR Interval: 513 P-R Interval: 144 QRSD Interval: 68 QT Interval: 292 QTC Interval: 408 P [place]: 41 QRS [place]: 3 T Wave [place]: 45 EKG Severity - ABNORMAL ECG - EKG Impression: SINUS TACHYCARDIA EKG Impression: ABERRANT COMPLEX, POSSIBLY SUPRAVENTRICULAR EKG Impression: LOW VOLTAGE IN FRONTAL LEADS EKG Impression: BORDERLINE R WAVE PROGRESSION, ANTERIOR LEADS EKG Impression: BORDERLINE T ABNORMALITIES, ANTERIOR LEADS Electronically Signed By: Lashonda Waters 27-Jan-2017 09:16:27
[2017-01-26] MEDS: D5W 1/2 NS W/ 20 KCl/L 1,000 ML IV SCH (20:41)
[2017-01-26 21:27] LABS: POTASSIUM 3.4 mEq/L (3.5-5.2)
[2017-01-26] MEDS ORDERED: POTASSIUM Cl (KCl) 50 ML IV SCH (21:57)
[2017-01-26] MEDS ORDERED: POTASSIUM CL 10 MEQ TAB PO ONE (22:06)
[2017-01-27] MEDS: LEVOTHYROXINE 75 MCG TAB PO SCH (04:49)
[2017-01-27 05:29] LABS: ALANINE AMINOTRANSFERASE 33 IU/L (21-72); ALBUMIN 1.9 g/dL (3.5-5.0); ALKALINE PHOSPHATASE 57 IU/L (38-126); ANION GAP 5 mEq/L (8-16); ASPARTATE AMINOTRANSFERASE 26 IU/L (17-59); BILIRUBIN,TOTAL 1.1 mg/dL (0.1-1.4); CALCIUM 7.4 mg/dL (8.5-10.4); CARBON DIOXIDE 26 mEq/l (22-31); CHLORIDE 109 mEq/L (97-110); CREATININE 0.6 mg/dL (0.7-1.3); GLOMERULAR FILTRATION RATE > 60; GLUCOSE 105 mg/dL (70-100); POTASSIUM 3.5 mEq/L (3.5-5.2); SODIUM 140 mEq/L (134-144); TOTAL PROTEIN 4.7 g/dL (6.3-8.2)
[2017-01-27 05:30] LABS: % IMMATURE GRANULYOCYTES 1.7 % (0.0-1.1); ABSOLUTE IMMATURE GRANULOCYTES 0.27 10^3/uL (0.00-0.10); ADD DIFF? NO; ADD MORPH? NO; ADD SCAN? NO; ATYPICAL LYMPHOCYTE FLAG 0 (0-99); FRAGMENT RBC FLAG 0 (0-99); HEMATOCRIT 38.9 % (40.0-51.0); LEFT SHIFT FLG 40 (0-99); LIPEMIA HEMOLYSIS FLAG 80 (0-99); MEAN CELL HEMOGLOBIN 28.4 pg (27.9-34.1); MEAN CELL HEMOGLOBIN CONCENTR. 33.4 g/dL (32.4-36.7); MEAN CELL VOLUME 85.1 fL (81.5-99.8); MEAN PLATELET VOLUME 9.7 fL (8.7-11.7); PLATELET CLUMPS FLAG 0 (0-99); PLATELET COUNT 92 10^3/uL (150-400); RED BLOOD CELL COUNT 4.57 10^6/uL (4.40-6.38); RED CELL DISTRIBUTION WIDTH 15.1 % (11.5-15.2)
[2017-01-27] MEDS: PANTOPRAZOLE SODIUM 40 MG in NS 100 ML IV SCH ×2 (09:01→21:01)
[2017-01-27] MEDS: ESCITALOPRAM OXALATE 10 MG TAB PO SCH (09:02)
[2017-01-27] MEDS: HYDROmorphONE/DILAUDID 1 MG/ML SYR IVP PRN ×2 (09:06→23:50)
[2017-01-27] MEDS: D5W 1/2 NS W/ 20 KCl/L 1,000 ML IV SCH (09:10)
[2017-01-27] MEDS ORDERED: POTASSIUM CL 10 MEQ TAB PO ONE (09:22)
[2017-01-27] MEDS ORDERED: POTASSIUM CL 20 MEQ TAB ONE (09:25)
[2017-01-27] MEDS: ACETAMINOPHEN 325 MG TAB PO PRN (09:28)
[2017-01-27] MEDS ORDERED: FUROSEMIDE 40 MG/4 ML VIAL IVP ONE (09:33)
[2017-01-27] MEDS ORDERED: ALBUMIN 25% 200 ML IV ONE (09:45)
[2017-01-27] MEDS ORDERED: MAGNESIUM HYDROXIDE 30 ML UDCUP PO PRN (09:45)
[2017-01-27] MEDS ORDERED: POLYETHYLENE GLYCOL 3350 17 GM PKT PO PRN (09:45)
[2017-01-27] MEDS ORDERED: LACTULOSE 20 GM/30 ML UDCUP PO PRN (09:45)
[2017-01-27] MEDS: BISACODYL 10 MG SUPP PR PRN (10:20)
[2017-01-27] MEDS ORDERED: CLINDAMYCIN 150 MG CAP PO SCH (14:00)
[2017-01-27] MEDS: HYDROCODONE/APAP 5/325 TAB PO PRN (15:05)
[2017-01-27] MEDS: FUROSEMIDE 20 MG/2 ML VIAL IVP SCH (16:16)
--- NOTE | 2017-01-27 16:59 | HOSPPROG ---
Hospitalist Progress Note Assessment/Plan: * UGIB - gastric ulcer s/p clipping -PPI * RLE DVT -start Lovenox * Septic shock - ? source - aspiration PNA vs. UTI -cultures negative -levaquin, clinda * Dysphagia - nectar thick * Acute respiratory failure s/p extubation * Tachycardia - ? PE after CTA done -check limited ECHO for pulm HTN * Fecal impaction - stool ball 8cm -enema, bowel protocol * Edema -IV lasix * Ascites - consider tap * Back pain - unclear chronicity -consider imaging if infectious symptoms continue * Gastric distention -consider re-image once fecal impaction resolved * TBI with hemiplegia * Hypernatremia - resolved * ARF - resolved * Dementia with metabolic encephalopathy Subjective: no new complaints. Objective: Vital Signs Temp Pulse Resp BP Pulse Ox 36.9 C 109 H 15 118/74 94 01/27/17 08:00 01/27/17 08:00 01/27/17 08:00 01/27/17 08:00 01/27/17 08:00 Laboratory Results 01/27/17 05:00 01/27/17 05:00 01/26/17 01/27/17 01/28/17 05:59 05:59 05:59 Intake Total 1760 1500 400 Output Total 600 Balance 1760 900 400 PT 15.5 SEC (12.0-15.0) H 01/19/17 11:43 INR 1.23 (0.83-1.16) H 01/19/17 11:43 US : large RLE dvt tele reviewed: sinus tachy EKG reviewed, my personal interpretation is: sinus tachy - Physical Exam Constitutional: no apparent distress, appears nourished, not in pain Cardiovascular: regular rate and rhythym, no murmur, rub, or gallop, edema (3+) Respiratory: no respiratory distress, no rales or rhonchi, clear to auscultation Gastrointestinal: normoactive bowel sounds, soft, non-tender abdomen, no palpable masses Skin: no rashes or abrasions, no fluctuance, no induration Neurologic: No AAOx3 Psychiatric: encephalopathic, poor insight, poor judgement, poor memory, No interacting appropriately, No agitated ICD10 Worksheet Patient Problems: Problems Problem Status Onset GI bleed Acute Hypotension Acute
[2017-01-27] MEDS: HEPARIN/DEXTROSE 500 ML IV SCH (18:45)
[2017-01-27 19:01] LABS: POTASSIUM 3.3 mEq/L (3.5-5.2)
[2017-01-27 19:10] LABS: % IMMATURE GRANULYOCYTES 1.6 % (0.0-1.1); ABSOLUTE IMMATURE GRANULOCYTES 0.24 10^3/uL (0.00-0.10); ADD DIFF? NO; ADD MORPH? NO; ADD SCAN? NO; ATYPICAL LYMPHOCYTE FLAG 0 (0-99); FRAGMENT RBC FLAG 0 (0-99); HEMATOCRIT 39.5 % (40.0-51.0); HEMOGLOBIN 13.2 g/dL (13.7-17.5); LEFT SHIFT FLG 20 (0-99); LIPEMIA HEMOLYSIS FLAG 80 (0-99); MEAN CELL HEMOGLOBIN 28.6 pg (27.9-34.1); MEAN CELL HEMOGLOBIN CONCENTR. 33.4 g/dL (32.4-36.7); MEAN CELL VOLUME 85.7 fL (81.5-99.8); MEAN PLATELET VOLUME 9.9 fL (8.7-11.7); PLATELET CLUMPS FLAG 10 (0-99); PLATELET COUNT 104 10^3/uL (150-400); RED BLOOD CELL COUNT 4.61 10^6/uL (4.40-6.38); RED CELL DISTRIBUTION WIDTH 14.7 % (11.5-15.2)
[2017-01-27 19:31] LABS: INR 1.22 (0.83-1.16); PROTIME(PATIENT) 15.4 SEC (12.0-15.0)
[2017-01-27 19:32] LABS: APTT 30.2 SEC (23.0-38.0)
[2017-01-27] MEDS: MELATONIN 3 MG TAB PO SCH (19:48)
[2017-01-27] MEDS: SENNOSIDES/DOCUSATE SODIUM TAB PO SCH (19:48)
[2017-01-27] MEDS ORDERED: PANTOPRAZOLE SODIUM 40 MG TAB PO SCH (21:00)
[2017-01-27] MEDS: POTASSIUM Cl (KCl) 50 ML IV SCH ×2 (21:41→23:14)
[2017-01-27] MEDS: CLINDAMYCIN 600 MG/DEXTROSE 50 ML IV SCH (22:26)
[2017-01-27] MEDS: CLINDAMYCIN 1% GEL TP SCH (23:16)
[2017-01-28] MEDS: POTASSIUM Cl (KCl) 50 ML IV SCH ×3 (02:02→21:27)
[2017-01-28] MEDS: HEPARIN 10,000 UNIT/10 ML MDV IVP PRN ×3 (02:42→17:28)
[2017-01-28] MEDS: LEVOTHYROXINE 75 MCG TAB PO SCH (04:49)
[2017-01-28] MEDS: CLINDAMYCIN 600 MG/DEXTROSE 50 ML IV SCH ×3 (05:25→21:21)
[2017-01-28 05:48] LABS: % IMMATURE GRANULYOCYTES 1.8 % (0.0-1.1); ABSOLUTE IMMATURE GRANULOCYTES 0.24 10^3/uL (0.00-0.10); ADD DIFF? NO; ADD MORPH? NO; ADD SCAN? NO; ATYPICAL LYMPHOCYTE FLAG 10 (0-99); FRAGMENT RBC FLAG 0 (0-99); HEMATOCRIT 37.4 % (40.0-51.0); HEMOGLOBIN 12.6 g/dL (13.7-17.5); LEFT SHIFT FLG 20 (0-99); LIPEMIA HEMOLYSIS FLAG 80 (0-99); MEAN CELL HEMOGLOBIN 29.6 pg (27.9-34.1); MEAN CELL HEMOGLOBIN CONCENTR. 33.7 g/dL (32.4-36.7); MEAN CELL VOLUME 87.8 fL (81.5-99.8); MEAN PLATELET VOLUME 10.2 fL (8.7-11.7); PLATELET CLUMPS FLAG 0 (0-99); PLATELET COUNT 100 10^3/uL (150-400); RED BLOOD CELL COUNT 4.26 10^6/uL (4.40-6.38); RED CELL DISTRIBUTION WIDTH 14.8 % (11.5-15.2)
[2017-01-28 06:09] LABS: ALANINE AMINOTRANSFERASE 33 IU/L (21-72); ALBUMIN 2.2 g/dL (3.5-5.0); ALKALINE PHOSPHATASE 63 IU/L (38-126); ANION GAP 6 mEq/L (8-16); ASPARTATE AMINOTRANSFERASE 34 IU/L (17-59); BILIRUBIN,TOTAL 1.1 mg/dL (0.1-1.4); BILIRUBIN-CONJUGATED 0.8 mg/dL (0.0-0.5); BILIRUBIN-UNCONJUGATED 0.3 mg/dL (0.0-1.1); CALCIUM 7.5 mg/dL (8.5-10.4); CARBON DIOXIDE 30 mEq/l (22-31); CHLORIDE 105 mEq/L (97-110); CREATININE 0.6 mg/dL (0.7-1.3); GLOMERULAR FILTRATION RATE > 60; GLUCOSE 110 mg/dL (70-100); MAGNESIUM 1.4 mg/dL (1.6-2.3); POTASSIUM 3.6 mEq/L (3.5-5.2); SODIUM 141 mEq/L (134-144); TOTAL PROTEIN 4.9 g/dL (6.3-8.2)
[2017-01-28 06:15] LABS: INR 1.29 (0.83-1.16); PROTIME(PATIENT) 16.1 SEC (12.0-15.0)
[2017-01-28 06:43] LABS: SEDIMENTATION RATE 26 MM/HR (0-20)
[2017-01-28] MEDS: ESCITALOPRAM OXALATE 10 MG TAB PO SCH ×2 (07:54→10:00)
[2017-01-28] MEDS: SENNOSIDES/DOCUSATE SODIUM TAB PO SCH ×2 (07:56→21:21)
[2017-01-28] MEDS: FUROSEMIDE 20 MG/2 ML VIAL IVP SCH (08:37)
[2017-01-28] MEDS ORDERED: MAGNESIUM SULF 2 GM/WATER 50 ML IV ONE (09:06)
[2017-01-28] MEDS ORDERED: POTASSIUM CL 10 MEQ TAB PO ONE (09:28)
[2017-01-28] MEDS: PANTOPRAZOLE SODIUM 40 MG in NS 100 ML IV SCH (10:59)
[2017-01-28] MEDS: CLINDAMYCIN 1% GEL TP SCH ×2 (10:59→21:27)
[2017-01-28] MEDS: BISACODYL 10 MG SUPP PR PRN (11:33)
[2017-01-28] MEDS: HYDROCODONE/APAP 5/325 TAB PO PRN ×2 (12:01→22:22)
[2017-01-28] MEDS: PANTOPRAZOLE SODIUM 40 MG TAB PO SCH ×2 (12:01→21:21)
[2017-01-28] MEDS ORDERED: GADOBUTROL 10 ML VIAL IVP ONE (13:14)
[2017-01-28] MEDS ORDERED: HYDROmorphONE/DILAUDID 1 MG/ML SYR IVP ONE (14:00)
[2017-01-28] MEDS: LEVALBUTEROL 1.25 MG/3 ML DEYVIAL IH SCH ×2 (14:20→21:53)
[2017-01-28] MEDS ORDERED: FUROSEMIDE 20 MG/2 ML VIAL IVP SCH (15:00)
[2017-01-28] MEDS: HEPARIN/DEXTROSE 500 ML IV SCH (16:11)
--- NOTE | 2017-01-28 16:29 | HOSPPROG ---
Hospitalist Progress Note Assessment/Plan: * UGIB - gastric ulcer s/p clipping -PPI * RLE DVT -IV heparin -hopefully GI bleed stable enough to tolerate * Septic shock - ? source - aspiration PNA vs. UTI -cultures negative -levaquin, clinda -now with increasing loculations in abd - recheck CT * Dysphagia - nectar thick * Acute respiratory failure s/p extubation -very wheezy - add Xopenex * Tachycardia - sepsis vs. PE -check limited ECHO for pulm HTN * Fecal impaction - stool ball 8cm -enema, bowel protocol * Edema -IV lasix * Ascites - consider tap * Back pain - suspect chronic -T-spine MRI negative * Gastric distention -repeat CT as above * TBI with hemiplegia * Hypernatremia - resolved * ARF - resolved * Dementia with metabolic encephalopathy Subjective: c/o mid-thoracic back pain Objective: Vital Signs Temp Pulse Resp BP Pulse Ox 36.6 C 117 H 19 100/70 96 01/28/17 16:00 01/28/17 16:00 01/28/17 16:00 01/28/17 16:00 01/28/17 16:00 Laboratory Results 01/28/17 05:30 01/28/17 05:30 01/27/17 01/28/17 01/29/17 05:59 05:59 05:59 Intake Total 1500 1150 Output Total 600 Balance 900 1150 PT 16.1 SEC (12.0-15.0) H 01/28/17 05:30 INR 1.29 (0.83-1.16) H 01/28/17 05:30 MRI result discussed with Dr. Lucero - he recommends repeat CT abd as now with loculations in abd cavity MRI thoracic spine: unremarkable - Physical Exam Constitutional: no apparent distress, appears nourished, not in pain Cardiovascular: regular rate and rhythym, no murmur, rub, or gallop Respiratory: no respiratory distress, expiratory wheeze, inspiratory crackles, rhonchi Gastrointestinal: normoactive bowel sounds, soft, non-tender abdomen, no palpable masses Skin: no rashes or abrasions, no fluctuance, no induration Psychiatric: encephalopathic (tells me repeatedly that I am beautiful and gorgeous, but no other meaningful interaction), poor insight, poor judgement, poor memory, No interacting appropriately, No agitated ICD10 Worksheet Patient Problems: Problems Problem Status Onset GI bleed Acute Hypotension Acute
[2017-01-28] MEDS ORDERED: IOPAMIDOL (ISOVUE-300) 100 ML BTL IV ONE (16:50)
--- NOTE | 2017-01-28 17:09 | ECHO ---
[id number] + + [address] : : [place] [address] : : [phone] + + Adult Echocardiographic Report + -------+ :Name: ALEX LA SStudy Date: 01/28/2017 09:16 AM : : Hospital Admission Number: [id number] Locati on: 342: :: 1955 Gender: Male Height: 67 in : :Age: 62 yrs Race: WH Weight: 152 lb : :Reason For Study: Eval RV Strain : : BSA: 1.8 meter s2 : :History: This is a limited echo to evaluate Pulmonary HTN, RV : :strain : + -------+ Doppler Measurements \T\ Calculations TR max james: 211.7 cm/sec TR max P.9 mmHg RAP systole: 5.0 mmHg RVSP(TR): 22.9 mmHg Left Ventricle The left ventricular ejection fraction is normal. Right Ventricle The right ventricle is normal in size and function. Tricuspid Valve There is trace to mild tricuspid regurgitation. Right ventricular systolic pressure is normal. Doppler findings do not suggest pulmonary hypertension. Conclusion The left ventricular ejection fraction is normal. There is trace to mild tricuspid regurgitation. Right ventricular systolic pressure is normal. Doppler findings do not suggest pulmonary hypertension. Final Reading Physician: Broderick Mendes signed on 01/28/2017 05:09 PM Ordering Physician: Giovanna Garland Performed By: Alexandro Castillo, MAYTECS
[2017-01-28 18:54] LABS: POTASSIUM 3.6 mEq/L (3.5-5.2)
[2017-01-28] MEDS: MELATONIN 3 MG TAB PO SCH (21:21)
[2017-01-28] MEDS: HYDROmorphONE/DILAUDID 1 MG/ML SYR IVP PRN (23:35)
[2017-01-29] MEDS: CLINDAMYCIN 600 MG/DEXTROSE 50 ML IV SCH ×2 (05:49→17:46)
[2017-01-29] MEDS: LEVOTHYROXINE 75 MCG TAB PO SCH (05:49)
[2017-01-29] MEDS: ACETAMINOPHEN 325 MG TAB PO PRN ×2 (05:58→23:16)
[2017-01-29] MEDS: LEVALBUTEROL 1.25 MG/3 ML DEYVIAL IH SCH ×3 (06:30→23:43)
[2017-01-29 06:39] LABS: % IMMATURE GRANULYOCYTES 0.8 % (0.0-1.1); ABSOLUTE IMMATURE GRANULOCYTES 0.11 10^3/uL (0.00-0.10); ADD DIFF? NO; ADD MORPH? NO; ADD SCAN? NO; ATYPICAL LYMPHOCYTE FLAG 0 (0-99); FRAGMENT RBC FLAG 0 (0-99); HEMATOCRIT 34.8 % (40.0-51.0); HEMOGLOBIN 11.7 g/dL (13.7-17.5); LEFT SHIFT FLG 0 (0-99); LIPEMIA HEMOLYSIS FLAG 80 (0-99); MEAN CELL HEMOGLOBIN 29.5 pg (27.9-34.1); MEAN CELL HEMOGLOBIN CONCENTR. 33.6 g/dL (32.4-36.7); MEAN CELL VOLUME 87.9 fL (81.5-99.8); MEAN PLATELET VOLUME 10.3 fL (8.7-11.7); PLATELET CLUMPS FLAG 0 (0-99); PLATELET COUNT 129 10^3/uL (150-400); RED BLOOD CELL COUNT 3.96 10^6/uL (4.40-6.38); RED CELL DISTRIBUTION WIDTH 14.8 % (11.5-15.2)
[2017-01-29 07:14] LABS: ANION GAP 8 mEq/L (8-16); CALCIUM 7.5 mg/dL (8.5-10.4); CARBON DIOXIDE 31 mEq/l (22-31); CHLORIDE 100 mEq/L (97-110); CREATININE 0.6 mg/dL (0.7-1.3); GLOMERULAR FILTRATION RATE > 60; GLUCOSE 112 mg/dL (70-100); POTASSIUM 3.5 mEq/L (3.5-5.2); SODIUM 139 mEq/L (134-144)
[2017-01-29] MEDS ORDERED: LIDOCAINE 1% 30 ML SDV ONE (08:32)
[2017-01-29] MEDS ORDERED: NA BICARBONATE 50 MEQ/50 ML VIAL ONE (08:32)
[2017-01-29] MEDS: HYDROCODONE/APAP 5/325 TAB PO PRN (08:54)
[2017-01-29] MEDS: ESCITALOPRAM OXALATE 10 MG TAB PO SCH (08:54)
[2017-01-29] MEDS: SENNOSIDES/DOCUSATE SODIUM TAB PO SCH ×2 (08:54→23:17)
[2017-01-29] MEDS: PANTOPRAZOLE SODIUM 40 MG TAB PO SCH ×2 (08:54→23:18)
[2017-01-29] MEDS: HYDROmorphONE/DILAUDID 1 MG/ML SYR IVP PRN (08:55)
[2017-01-29] MEDS: CLINDAMYCIN 1% GEL TP SCH (12:55)
[2017-01-29] MEDS ORDERED: POTASSIUM CL 10 MEQ TAB PO ONE ×2 (13:50→19:00)
[2017-01-29 14:32] LABS: GLUCOSE, PERITONEAL FLUID 77 mg/dL (55-113)
[2017-01-29] MEDS: HEPARIN/DEXTROSE 500 ML IV SCH (15:22)
--- NOTE | 2017-01-29 16:43 | HOSPPROG ---
Hospitalist Progress Note Assessment/Plan: * UGIB - gastric ulcer s/p clipping -PPI * RLE DVT -IV heparin -hopefully GI bleed stable enough to tolerate -eventual change to Lovenox/coumadin vs. Eliquis * Septic shock - ? source - aspiration PNA vs. UTI vs intra-abdominal -cultures negative -on levaquin, clinda * Loculated ascites - unclear source -s/p paracentesis - elevated WBC c/w SBP -other pockets of fluid too small to tap - ? infected -consult general surgery - d/w Dr. Walker -will change abx to IV Invanz -consult ID * Dysphagia - nectar thick * Acute respiratory failure s/p extubation -very wheezy - added Xopenex * Tachycardia - ? ongoing sepsis * Fecal impaction - stool ball 8cm -enema, bowel protocol * Back pain - suspect chronic -T-spine MRI negative * Gastric distention -repeat CT as above * TBI with hemiplegia * Hypernatremia - resolved * ARF - resolved * Dementia with metabolic encephalopathy - suspect baseline now Subjective: no new complaints Objective: Vital Signs Temp Pulse Resp BP Pulse Ox 36.5 C 108 H 16 102/77 92 01/29/17 12:43 01/29/17 14:56 01/29/17 14:56 01/29/17 12:43 01/29/17 14:56 Microbiology 01/29/17 14:30 Gram Stain - Final Peritoneal Fluid - Aspirate Laboratory Results 01/29/17 06:00 01/29/17 06:00 01/28/17 01/29/17 01/30/17 05:59 05:59 05:59 Intake Total 1150 1730 Output Total 450 Balance 1150 1280 PT 16.1 SEC (12.0-15.0) H 01/28/17 05:30 INR 1.29 (0.83-1.16) H 01/28/17 05:30 US paracentesis - extensive very very small loculations of ascites - Physical Exam Constitutional: no apparent distress, appears nourished, not in pain Cardiovascular: regular rate and rhythym, no murmur, rub, or gallop Respiratory: no respiratory distress, expiratory wheeze, inspiratory crackles, rhonchi Gastrointestinal: normoactive bowel sounds, soft, non-tender abdomen, no palpable masses Skin: no rashes or abrasions, no fluctuance, no induration Psychiatric: interacting appropriately, poor insight, poor judgement, poor memory, No encephalopathic, No anxious, No agitated ICD10 Worksheet Patient Problems: Problems Problem Status Onset GI bleed Acute Hypotension Acute
[2017-01-29] MEDS: ERTAPENEM 1 GM in NS 100 ML IV SCH (18:07)
[2017-01-29] MEDS: METOCLOPRAMIDE 10 MG/2 ML VIAL IVP SCH ×2 (18:44→23:19)
--- NOTE | 2017-01-29 19:32 | GCON ---
[f rep st] CONSULTATION DATE OF CONSULTATION: 01/29/2017 REFERRING PHYSICIAN: Giovanna Garland MD REASON FOR CONSULTATION: Loculated abdominal ascites. HISTORY: The patient lives in [facility]. He has had a traumatic brain injury and has a mild hemiplegia with a spastic left upper extremity. For several days prior to admission, he had hematemesis. He was transferred to [facility] and underwent an EGD. A clip was placed on a bleeding site. He was transfused 2 units of packed red cells and 3 units of FFP. He did develop sepsis and that was thought to possibly be pulmonary in origin. He has had an elevated white count and tachycardia. He has been transferred out of the ICU, he is on the floor at this point. He has a distended abdomen. He underwent a CT scan, which showed that he had some loculated ascites and increased white blood cell count on the peritoneal fluid. Recently, he has been started on IV heparin for DVT. His antibiotic treatments were started with Zosyn and because of a drop in platelets, he was changed to ceftriaxone and then continued on to Levaquin and clindamycin. Currently, he has been changed to Invanz. Today, he is not hungry. Apparently, he had a large stool last night. He has had flatus. He has had no prior abdominal surgery. He has no complaints of abdominal pain, nausea, or vomiting. He is not hungry, just thirsty. The CT today shows stool in the rectum, descending colon, transverse colon, and ascending colon, with contrast. It does show fluid around the liver and around the spleen, which appears to be subcapsular in origin. There is loculated fluid in the intraabdominal space and in the pelvis. This was sampled by Interventional Radiology. There were 729 white cells per high-power field. His abdomen at this point, is distended and mildly tender, but is certainly not an acute abdomen. SOCIAL HISTORY: He does not smoke tobacco. He has used marijuana and cocaine. Apparently, he drinks whenever he can get alcohol; that has included when he was in [facility]. ALLERGIES: He has no known drug allergies. HOME MEDICATIONS: Have included Dulcolax 10 mg rectally daily. He has taken ergocalciferol 50,000 units once every 30 days. He takes an herbal supplement. Uses [place] 1 tablet every 6 hours as needed. Ibuprofen 400 mg every 6 hours as needed. He takes multivitamin. Uses Zofran every 4 hours as needed. Uses Dulcolax 2 tablets twice a day. He does use clindamycin 1% gel. He uses Lexapro 5 mg tablet daily. He uses Synthroid 75 mcg daily. Melatonin 3 mg daily. PAST MEDICAL HISTORY: He denies prior surgeries and the chart notes reveal he has never had any surgeries. He denies rheumatic fever, tuberculosis, hepatitis , HIV, or transfusions. REVIEW OF SYSTEMS: He denies concussion. He thinks he may have had hypertension. He does wear lenses for visual correction. He uses a walker. PHYSICAL EXAMINATION: General: He is awake, alert and oriented. Musculoskeletal: He has a spasticity of his left upper extremity. His lower extremities, particularly his right, are edematous. Lymph nodes: There is no cervical, supraclavicular, axillary or inguinal lymphadenopathy. Abdomen: Mildly tender to palpation. It is distended. There are hypoactive bowel sounds. It is certainly not an acute abdomen. LABORATORY: His white blood cell count started initially at 4.3, then went to 11.5 on the and 17 on the , it is now down on the to 14. His platelet count was 202, it dropped to 54 on the and is now back up to 129. His DVT was diagnosed on the . CT also shows atelectasis of both lower lobes. IMPRESSION: This patient has been treated with antibiotics and it is difficult to ascertain the reasons for his intraabdominal fluid collections. Certain loculations could be due to primary spontaneous bacterial peritonitis. It is possible that the hepatic and splenic fluid collections are subcapsular. Whether or not they were due to the use of heparin remains unclear at this time. I suggest we continue with the plan to use Invanz, follow his hematocrit and white blood cell count and provide supportive care. Reglan can be added. Enemas may be necessary to clear the colon. I will continue to follow this patient with you. His pathophysiology still remains somewhat unclear. Incentive spirometry may be helpful as well. /[id number]/MODL MTDD
[2017-01-29] MEDS: MELATONIN 3 MG TAB PO SCH (23:18)
[2017-01-30] MEDS: CLINDAMYCIN 1% GEL TP SCH ×3 (00:06→20:31)
[2017-01-30] MEDS: HEPARIN 10,000 UNIT/10 ML MDV IVP PRN ×2 (01:11→14:17)
[2017-01-30] MEDS: LEVOTHYROXINE 75 MCG TAB PO SCH (05:46)
[2017-01-30] MEDS: METOCLOPRAMIDE 10 MG/2 ML VIAL IVP SCH ×3 (05:46→17:51)
[2017-01-30 06:02] LABS: ABSOLUTE IMMATURE GRANULOCYTES 0.11 10^3/uL (0.00-0.10); ADD DIFF? NO; ADD MORPH? NO; ADD SCAN? NO; ATYPICAL LYMPHOCYTE FLAG 0 (0-99); FRAGMENT RBC FLAG 0 (0-99); HEMATOCRIT 32.6 % (40.0-51.0); HEMOGLOBIN 10.7 g/dL (13.7-17.5); LEFT SHIFT FLG 0 (0-99); LIPEMIA HEMOLYSIS FLAG 80 (0-99); MEAN CELL HEMOGLOBIN CONCENTR. 32.8 g/dL (32.4-36.7); MEAN CELL VOLUME 88.3 fL (81.5-99.8); MEAN PLATELET VOLUME 10.1 fL (8.7-11.7); PLATELET CLUMPS FLAG 20 (0-99); PLATELET COUNT 149 10^3/uL (150-400); RED BLOOD CELL COUNT 3.69 10^6/uL (4.40-6.38); RED CELL DISTRIBUTION WIDTH 14.6 % (11.5-15.2)
[2017-01-30] MEDS: LEVALBUTEROL 1.25 MG/3 ML DEYVIAL IH SCH ×3 (06:29→20:38)
[2017-01-30 06:34] LABS: ANION GAP 5 mEq/L (8-16); CALCIUM 7.5 mg/dL (8.5-10.4); CARBON DIOXIDE 30 mEq/l (22-31); CHLORIDE 101 mEq/L (97-110); CREATININE 0.6 mg/dL (0.7-1.3); GLOMERULAR FILTRATION RATE > 60; GLUCOSE 111 mg/dL (70-100); POTASSIUM 3.8 mEq/L (3.5-5.2); SODIUM 136 mEq/L (134-144)
[2017-01-30] MEDS ORDERED: POTASSIUM CL 10 MEQ TAB PO ONE ×2 (06:48→18:52)
[2017-01-30] MEDS: PANTOPRAZOLE SODIUM 40 MG TAB PO SCH ×2 (09:02→20:16)
[2017-01-30] MEDS: ERTAPENEM 1 GM in NS 100 ML IV SCH (09:02)
[2017-01-30] MEDS: SENNOSIDES/DOCUSATE SODIUM TAB PO SCH ×2 (09:02→20:15)
[2017-01-30] MEDS: HYDROCODONE/APAP 5/325 TAB PO PRN ×2 (09:02→20:16)
[2017-01-30] MEDS: ESCITALOPRAM OXALATE 10 MG TAB PO SCH (09:02)
--- NOTE | 2017-01-30 10:34 | SOAPPROG ---
SOAP Progress Note Assessment/Plan: 01/30/17 10:20 Assessment: He did have a good response to the enemas last night. His abdomen is soft with hypoactive bowel sounds. He does not appear to have intra-abdominal sepsis at this time. Diet as tolerated is reasonable. It may be helpful to add miralax 2x/ day as he was on a promotility regimen at [facility]. Will continue to need to watch to see if what I suspect is both subcapsular hepatic and splenic hematoma rupture. Need to work on pulmonary toilet. Subjective: no complaints Objective: Vital Signs Temp Pulse Resp BP Pulse Ox 36.7 C 108 H 19 106/76 94 01/30/17 07:27 01/30/17 07:27 01/30/17 07:27 01/30/17 07:27 01/30/17 07:27 Microbiology 01/29/17 14:30 Gram Stain - Final Peritoneal Fluid - Aspirate Laboratory Results 01/30/17 05:50 01/30/17 05:50 01/29/17 01/30/17 01/31/17 05:59 05:59 06:59 Intake Total 1730 343.2 Output Total 450 Balance 1280 343.2 PT 16.1 SEC (12.0-15.0) H 01/28/17 05:30 INR 1.29 (0.83-1.16) H 01/28/17 05:30 - Time Spent With Patient Time Spent With Patient: 15 Physical Exam - Physical Exam General Appearance: alert, no apparent distress Neck: non-tender, full range of motion, supple, normal inspection Respiratory: crackles, rhonchi, other (Needs to use IS and get up to chair to optimize ventilatory activity) Cardiac/Chest: tachycardia Abdomen: non-tender, soft, other (hypoactive bowel sounds) Male Genitalia: deferred Rectal: deferred Back: Normal inspection Skin: normal color, warm/dry Neuro/Psych: alert, normal mood/affect ICD10 Worksheet Patient Problems: Problems Problem Status Onset GI bleed Acute Hypotension Acute
--- NOTE | 2017-01-30 12:51 | HOSPPROG ---
Hospitalist Progress Note Assessment/Plan: Patient is a 62-year-old male with a history of dementia and closed head injury , hemiplegia and stroke who was transferred from [facility]. He was admitted after several days of hematemesis and found to have a lot of blood in his stomach. He underwent upper endoscopy which revealed a gastric ulcer. Since then his hospitalization has been complicated with multiple issues including a DVT, loculated ascites and sepsis. # acute GI hemorrhage due to proximal gastric ulcer status post clipping; also esophageal ulcer seen * On PPI * Tolerating anticoagulation. * # RLE DVT * IV heparin * If tolerates from GI standpoint can eventually transition to Coumadin or Eliquis. # Septic shock - ? source - aspiration PNA vs. UTI vs intra-abdominal. Had been on Levaquin. Evaluation has revealed loculated ascites as possible source and evidence of SBP * Antibiotics changed to Invanz yesterday * Id consulted as well as General surgery * Follow clinically on antibiotics # Dysphagia - nectar thick # Acute respiratory failure s/p extubation -very wheezy - added Xopenex # euthyroid sick syndrome, elevated TSH with normal free T4 follow-up as outpatient # Tachycardia - ? ongoing sepsis, follow heart rate and vitals # Fecal impaction - stool ball 8cm * enema, bowel protocol # Back pain - suspect chronic * T-spine MRI negative * # TBI with hemiplegia # Hypernatremia - resolved # ARF - resolved # Dementia with metabolic encephalopathy - suspect baseline now Subjective: Patient new to me chart reviewed. No complaints except he is thirsty for vodka Objective: Vital Signs Temp Pulse Resp BP Pulse Ox 37.2 C 97 20 115/81 H 95 01/30/17 11:48 01/30/17 11:48 01/30/17 11:48 01/30/17 11:48 01/30/17 11:48 Microbiology 01/29/17 14:30 Gram Stain - Final Peritoneal Fluid - Aspirate Laboratory Results 01/30/17 05:50 01/30/17 05:50 01/29/17 01/30/17 01/31/17 05:59 05:59 06:59 Intake Total 1730 343.2 Output Total 450 Balance 1280 343.2 PT 16.1 SEC (12.0-15.0) H 01/28/17 05:30 INR 1.29 (0.83-1.16) H 01/28/17 05:30 - Physical Exam Constitutional: not in pain, chronically ill appearing, cachectic Eyes: PERRL, EOMI, No icteric sclera Ears, Nose, Mouth, Throat: dry mucous membranes Cardiovascular: regular rate and rhythym Respiratory: no respiratory distress, no rales or rhonchi, clear to auscultation , reduced air movement Gastrointestinal: no palpable masses, ascites, No normoactive bowel sounds ( Diminished), No tenderness, No hepatosplenomegally, No guarding Genitourinary: no bladder fullness Skin: warm Musculoskeletal: no muscle tenderness, generalized weakness Neurologic: facial droop, No AAOx3 Psychiatric: encephalopathic, poor insight, poor judgement, poor memory ICD10 Worksheet Patient Problems: Problems Problem Status Onset GI bleed Acute Hypotension Acute
[2017-01-30] MEDS: HEPARIN/DEXTROSE 500 ML IV SCH (14:17)
--- NOTE | 2017-01-30 17:20 | GCON ---
[f rep st] CONSULTATION INPATIENT INFECTIOUS DISEASE CONSULTATION REFERRING PHYSICIAN: Phan Hardin MD REASON FOR REFERRAL: Probable peritonitis. HISTORY OF PRESENT ILLNESS: Patient is a 62-year-old male who was admitted to [facility] in the morning of 01/19/2017. Patient is a long-term resident of [facility]. He was noted t o have hematemesis over the last several days prior to admission. He was delivered to the emergency room by EMS, and the patient was reporting low back pain. He has a significant traumatic brain inj ury in the past, and this is his reason for being a chronic resident of [facility] in the first p lace. This limits his ability to verbalize at length or relate answers to questions. Patient melvin denisey had nondetectable blood pressure on admission and presentation to the emergency department. He was also noted to be febrile to 38.5. The patient had an NG tube placed and was found to have a la rge amount of blood in his stomach. He was transfused with 2 units of packed cells, 3 units of FFP, and a unit of platelets. He was empirically covered with vancomycin and Zosyn for the first 3 or 4 days of his admission. Evaluation by Gastroenterology on the day of presentation revealed a proxim al gastric ulceration with a visible vessel. Also revealed confluent ulcerations of the distal 3rd of the esophagus without active bleeding. It was determined that the patient had acute blood-loss a nemia secondary to the bleeding ulcer. The patient had non contrasted CT scans of the abdomen and p yanna on 01/19, as well as 01/20. These revealed no evidence of bowel perforation but did note asci khadijah. There was no obvious cirrhosis of the liver. Patient underwent a 3rd abdominal CT scan on 07/2017 secondary to increase in abdominal fluid collections. The intravenous contrast revealed enh ancing loculated ascites. Fluid from one of these was accessed by Interventional Radiology and, by cell count, was determined to be consistent with bacterial peritonitis. Patient was placed back on coverage with ertapenem. Currently, he is resting comfortably in bed. He denies any abdominal pain . He denies any fevers or chills. PAST MEDICAL HISTORY: 1. History of a significant closed head injury. 2. Dementia. 3. Cerebrovascular accident. 4. Acute GI bleed. PAST SURGICAL HISTORY: None noted. ANTIBIOTICS: Ertapenem. ALLERGIES: Patient has no known drug allergies. SOCIAL HISTORY: Patient is a long-term resident of [facility]. FAMILY HISTORY: Noncontributory. REVIEW OF SYSTEMS: Other than that detailed above in history of present illness, comprehensive 10-s ystem review is negative. PHYSICAL EXAMINATION: VITAL SIGNS: Temperature maximum is 37.6 and current is 36.4. Heart rate is 103, respiratory rate is 16, blood pressure is 115/81. GENERAL: Patient is a well-formed, well-nourished older male in no acute distress. He is not toxic in appearance. He is alert and oriented x3. He is in a pleasant demeanor. HEENT: Normocephalic for age. Atraumatic. No scleral icterus. No oral lesion. No drainage from the nares. Eyes, lids and conjunctivae within normal limits. Pupils are equal and round, bilateral ly. NECK: Supple. No meningismus. LUNGS: Clear to auscultation. Good effort. HEART: Tachycardic but regular. No murmur, rub, or gallop noted. No significant peripheral edema. ABDOMEN: Soft. Mildly distended. Nontender. No masses. SKIN: Warm and dry to the touch. No rash or lesion. MUSCULOSKELETAL: No muscle belly tenderness is noted. No joint line effusion or arthritis seen. NEURO: Cranial nerves 2-12 seem to be intact. LABORATORY DATA: Patient has a CBC dated 01/30/2017 that shows a white blood cell count of 10.7, he moglobin of 10.7, hematocrit of 32.6, and platelet count of 149. Differential is left-shifted with 82% segmented neutrophils. Serum chemistries on 01/30/2017 show sodium 136, potassium of 3.8, chlor rupesh of 101, bicarbonate of 30, BUN of 8, creatinine 0.6. Urinalysis on 01/26/2017 is all within nor mal limits apart from 2+ blood and 25-50 red cells per high-power field. Peritoneal fluid obtained on 01/29/2017 shows yellow hazy fluid with 729 white blood cells and 6370 red blood cells per high-p ower field. Differential shows 91% segmented neutrophils. MICROBIOLOGIC DATA: Patient had blood cultures dated 01/19/2017 which are negative. Repeat blood c ultures on 01/26/2017 are no growth to date. Peritoneal fluid from 01/29/2017 is also no growth at this point. Gram stain showing 3+ polymorphonuclear white cells and 3+ mononuclear white cells with no organisms. RADIOLOGIC DATA: The patient has an abdominal pelvic CT with contrast performed on 01/28/2017. Thi s shows dense consolidation with associated pleural fluid at the lung bases: Atelectasis, versus pn eumonia. Also shows significant progression in multiple loculated foci of abdominal and pelvic asci khadijah. No definite secondary findings to suggest superimposed infection of the fluid collections. ASSESSMENT: Inflammatory fluid collections in the abdomen and pelvis, unclear etiology. The patien t came in with acute gastrointestinal bleed, however was febrile, which may indicate that these infl ammatory collections in the abdomen and pelvis were present prior to his admission for the acute gas trointestinal bleed. The ascitic fluid is not free flowing and is quite loculated. He also does no t have any evidence of liver cirrhosis on scan, which would typically be a prerequisite for increase d portal pressures and spontaneous bacterial peritonitis. No commentary about acute thrombosis of t he portal vein either. Liver transaminases have been normal. Coagulation factors are mildly increa sed. Albumin levels are quite low. There is no clear etiology, although I think that patient's whi te count is coming down with empiric therapy, so this may indirectly indicate there is a bacterial p rocess associated with this. I am confused, however, as to the cause of why the patient should have spontaneous bacterial peritonitis. The initial empiric antibiotic course early in his stay may hav e sterilized these fluid collections to the point where we will not get positive cultures. At this point, would continue with ertapenem monotherapy for a 7-10 day course. Will follow the size of the fluid collections radiographically. PLAN: 1. Continue ertapenem. 2. Consider repeat CT scan in 7-10 days. 3. Follow clinical course as well as laboratory values and culture data. /[id number]/MODL
[2017-01-30 18:38] LABS: POTASSIUM 3.7 mEq/L (3.5-5.2)
[2017-01-30] MEDS: MELATONIN 3 MG TAB PO SCH (20:15)
[2017-01-30] MEDS: POLYETHYLENE GLYCOL 3350 17 GM PKT PO SCH (20:33)
[2017-01-31] MEDS: METOCLOPRAMIDE 10 MG/2 ML VIAL IVP SCH ×5 (01:43→23:56)
[2017-01-31 03:25] LABS: % IMMATURE GRANULYOCYTES 0.8 % (0.0-1.1); ABSOLUTE IMMATURE GRANULOCYTES 0.09 10^3/uL (0.00-0.10); ADD DIFF? NO; ADD MORPH? NO; ADD SCAN? NO; ATYPICAL LYMPHOCYTE FLAG 10 (0-99); FRAGMENT RBC FLAG 0 (0-99); HEMATOCRIT 31.5 % (40.0-51.0); HEMOGLOBIN 10.4 g/dL (13.7-17.5); LEFT SHIFT FLG 0 (0-99); LIPEMIA HEMOLYSIS FLAG 80 (0-99); MEAN CELL HEMOGLOBIN 29.2 pg (27.9-34.1); MEAN CELL VOLUME 88.5 fL (81.5-99.8); MEAN PLATELET VOLUME 9.5 fL (8.7-11.7); PLATELET CLUMPS FLAG 0 (0-99); PLATELET COUNT 193 10^3/uL (150-400); RED BLOOD CELL COUNT 3.56 10^6/uL (4.40-6.38); RED CELL DISTRIBUTION WIDTH 14.8 % (11.5-15.2)
[2017-01-31 03:36] LABS: ALANINE AMINOTRANSFERASE 33 IU/L (21-72); ALBUMIN 2.2 g/dL (3.5-5.0); ALKALINE PHOSPHATASE 94 IU/L (38-126); ANION GAP 8 mEq/L (8-16); ASPARTATE AMINOTRANSFERASE 41 IU/L (17-59); BILIRUBIN,TOTAL 0.8 mg/dL (0.1-1.4); CALCIUM 7.7 mg/dL (8.5-10.4); CARBON DIOXIDE 31 mEq/l (22-31); CHLORIDE 99 mEq/L (97-110); CREATININE 0.6 mg/dL (0.7-1.3); GLOMERULAR FILTRATION RATE > 60; GLUCOSE 102 mg/dL (70-100); POTASSIUM 3.9 mEq/L (3.5-5.2); SODIUM 138 mEq/L (134-144); TOTAL PROTEIN 5.1 g/dL (6.3-8.2)
[2017-01-31] MEDS: LEVALBUTEROL 1.25 MG/3 ML DEYVIAL IH SCH ×3 (05:01→19:37)
[2017-01-31] MEDS ORDERED: POTASSIUM CL 10 MEQ TAB PO ONE (05:39)
[2017-01-31] MEDS: LEVOTHYROXINE 75 MCG TAB PO SCH (06:03)
[2017-01-31] MEDS: HEPARIN/DEXTROSE 500 ML IV SCH ×2 (06:59→22:36)
--- NOTE | 2017-01-31 07:34 | SOAPPROG ---
SOAP Progress Note Assessment/Plan: 01/30/17 10:20 Assessment: He did have a good response to the enemas last night. His abdomen is soft with hypoactive bowel sounds. He does not appear to have intra-abdominal sepsis at this time. Diet as tolerated is reasonable. It may be helpful to add miralax 2x/ day as he was on a promotility regimen at [facility]. Will continue to need to watch to see if what I suspect is both subcapsular hepatic and splenic hematoma rupture. Need to work on pulmonary toilet. 01/31/17 07:31 Assessment: He is not doing his IS as he has difficulty with the concept. Lungs still have coarse rhonchi. Pulmonary toilet continues to be an issue Abdomen soft. Bowel sounds noted. Not eating well but drinks well. I have suggested smoothies to nursing as an option. Plan: nothing further to add - I will sign off at this time. Please reconsult if I can be of any further assistance Subjective: C/o back pain again Objective: Vital Signs Temp Pulse Resp BP Pulse Ox 37.2 C 111 H 16 103/63 96 01/30/17 23:14 01/30/17 23:14 01/31/17 05:02 01/30/17 23:14 01/31/17 05:02 Microbiology 01/29/17 14:30 Gram Stain - Final Peritoneal Fluid - Aspirate Laboratory Results 01/31/17 03:00 01/31/17 03:00 01/30/17 01/31/17 02/01/17 04:59 05:59 05:59 Intake Total Balance PT 16.1 SEC (12.0-15.0) H 01/28/17 05:30 INR 1.29 (0.83-1.16) H 01/28/17 05:30 - Time Spent With Patient Time Spent With Patient: 15 Physical Exam - Physical Exam General Appearance: alert, mild distress Neck: non-tender, full range of motion, supple Respiratory: rhonchi Abdomen: normal bowel sounds, non-tender, soft Neuro/Psych: alert ICD10 Worksheet Patient Problems: Problems Problem Status Onset GI bleed Acute Hypotension Acute
[2017-01-31] MEDS: ERTAPENEM 1 GM in NS 100 ML IV SCH (09:04)
[2017-01-31] MEDS: ESCITALOPRAM OXALATE 10 MG TAB PO SCH (09:08)
[2017-01-31] MEDS: SENNOSIDES/DOCUSATE SODIUM TAB PO SCH ×2 (09:08→20:56)
[2017-01-31] MEDS: PANTOPRAZOLE SODIUM 40 MG TAB PO SCH ×2 (09:09→20:56)
[2017-01-31] MEDS: POLYETHYLENE GLYCOL 3350 17 GM PKT PO SCH ×2 (09:09→20:56)
[2017-01-31] MEDS: HYDROCODONE/APAP 5/325 TAB PO PRN ×2 (09:12→21:00)
[2017-01-31] MEDS: CLINDAMYCIN 1% GEL TP SCH ×2 (09:21→21:26)
--- NOTE | 2017-01-31 12:09 | HOSPPROG ---
Hospitalist Progress Note Assessment/Plan: Patient is a 62-year-old male with a history of dementia and closed head injury , hemiplegia and stroke who was transferred from [facility]. He was admitted after several days of hematemesis and found to have a lot of blood in his stomach. He underwent upper endoscopy which revealed a gastric ulcer. Since then his hospitalization has been complicated with multiple issues including a DVT, loculated ascites and sepsis. # acute GI hemorrhage due to proximal gastric ulcer status post clipping; also esophageal ulcer seen * On PPI * Tolerating anticoagulation. # RLE DVT * IV heparin * If tolerates from GI standpoint can eventually transition to Coumadin or Eliquis. # Septic shock - ? source - aspiration PNA vs. UTI vs intra-abdominal. Had been on Levaquin. Evaluation has revealed loculated ascites as possible source and evidence of SBP * Antibiotics changed to Invanz yesterday * Id consulted as well as General surgery * Follow clinically on antibiotics * 10 days of IVabx and will reimage in7 days with a CT. # Dysphagia - nectar thick # Acute respiratory failure s/p extubation -very wheezy - added Xopenex # euthyroid sick syndrome, elevated TSH with normal free T4 follow-up as outpatient # Tachycardia - ? ongoing sepsis, follow heart rate and vitals # Fecal impaction - stool ball 8cm * enema, bowel protocol # Back pain - suspect chronic * T-spine MRI negative * # TBI with hemiplegia # Hypernatremia - resolved # ARF - resolved # Dementia with metabolic encephalopathy - suspect baseline now Subjective: Sleepy: No specific complaints does have some abdominal discomfort. Objective: Vital Signs Temp Pulse Resp BP Pulse Ox 36.8 C 106 H 24 H 114/71 94 01/31/17 08:00 01/31/17 10:13 01/31/17 10:13 01/31/17 08:00 01/31/17 10:13 Microbiology 01/29/17 14:30 Gram Stain - Final Peritoneal Fluid - Aspirate Laboratory Results 01/31/17 03:00 01/31/17 03:00 01/30/17 01/31/17 02/01/17 04:59 05:59 05:59 Intake Total Balance PT 16.1 SEC (12.0-15.0) H 01/28/17 05:30 INR 1.29 (0.83-1.16) H 01/28/17 05:30 - Physical Exam Constitutional: chronically ill appearing, uncomfortable Eyes: EOMI, icteric sclera Ears, Nose, Mouth, Throat: moist mucous membranes, No hard of hearing Cardiovascular: regular rate and rhythym, no murmur, rub, or gallop, tachycardia , edema Respiratory: no respiratory distress, no rales or rhonchi, clear to auscultation , reduced air movement (Basis) Gastrointestinal: normoactive bowel sounds, ascites, distension Genitourinary: no bladder fullness Skin: warm Musculoskeletal: generalized weakness Neurologic: No AAOx3 Psychiatric: flat affect ICD10 Worksheet Patient Problems: Problems Problem Status Onset GI bleed Acute Hypotension Acute
[2017-01-31] MEDS: HYDROmorphONE/DILAUDID 1 MG/ML SYR IVP PRN ×2 (14:04→17:30)
--- NOTE | 2017-01-31 14:11 | PCMIDPN ---
Assessment/Plan: Assessment: Probable spontaneous bacterial peritonitis. Cultures of the abdominal collection fluid so far no growth to date. This is not surprising due to the empiric course of antibiotics the patient had during the 1st 4 days of admission. Would cover empirically with ertapenem for 10-14 days then DC. Will have to reimage the area to see resolution of the loculated ascites. Plan: 1. Continue ertapenem. 2. Plan repeat CT scan for follow-up in approximately 7-10 days. 01/31/17 16:27 Subjective: Patient is resting in his hospital room. Underlying closed head injury and neurologic/psychiatric sequelae predominate the conversation. No new complaints. Continues to complain of low back pain. Objective: Ertapenem # 3 Vital Signs Temp Pulse Resp BP Pulse Ox 36.9 C 117 H 22 H 113/77 90 L 01/31/17 12:00 01/31/17 12:00 01/31/17 12:00 01/31/17 12:00 01/31/17 12:00 Microbiology 01/29/17 14:30 Gram Stain - Final Peritoneal Fluid - Aspirate Laboratory Results 01/31/17 03:00 01/31/17 03:00 01/30/17 01/31/17 02/01/17 04:59 05:59 05:59 Intake Total 100 Balance 100 ESR 26 MM/HR (0-20) H 01/28/17 05:30 - Physical Exam General Appearance: WD/WN, alert, no apparent distress, non-toxic Respiratory: lungs clear, normal breath sounds, No respiratory distress Cardiac/Chest: regular rate, rhythm, No tachycardia Skin: normal color, warm/dry, No rash Neuro/Psych: alert, normal mood/affect ICD10 Worksheet Patient Problems: Problems Problem Status Onset GI bleed Acute Hypotension Acute
[2017-01-31 18:54] LABS: POTASSIUM 4.3 mEq/L (3.5-5.2)
[2017-01-31] MEDS: MELATONIN 3 MG TAB PO SCH (20:56)
[2017-01-31 22:08] LABS: CREATINE KINASE-MB FRACTION 0.89 ng/mL (0-3.19); TROPONIN I < 0.012 ng/mL (0-0.034)
[2017-02-01] MEDS: LEVALBUTEROL 1.25 MG/3 ML DEYVIAL IH SCH ×3 (04:43→22:54)
[2017-02-01] MEDS: METOCLOPRAMIDE 10 MG/2 ML VIAL IVP SCH ×4 (05:56→23:37)
[2017-02-01] MEDS: LEVOTHYROXINE 75 MCG TAB PO SCH (06:04)
[2017-02-01] MEDS: SENNOSIDES/DOCUSATE SODIUM TAB PO SCH ×2 (07:57→21:49)
[2017-02-01] MEDS: HYDROCODONE/APAP 5/325 TAB PO PRN ×2 (07:58→16:38)
[2017-02-01] MEDS: PANTOPRAZOLE SODIUM 40 MG TAB PO SCH ×2 (07:59→21:49)
[2017-02-01] MEDS: ESCITALOPRAM OXALATE 10 MG TAB PO SCH (07:59)
[2017-02-01] MEDS: ERTAPENEM 1 GM in NS 100 ML IV SCH (08:00)
[2017-02-01] MEDS: CLINDAMYCIN 1% GEL TP SCH ×2 (08:00→21:49)
[2017-02-01] MEDS: POLYETHYLENE GLYCOL 3350 17 GM PKT PO SCH ×2 (08:01→21:49)
--- NOTE | 2017-02-01 08:46 | CPEKG ---
Heart Rate: 121 RR Interval: 496 P-R Interval: 140 QRSD Interval: 76 QT Interval: 300 QTC Interval: 426 P Garber: 48 QRS Garber: 2 T Wave Garber: 59 EKG Severity - BORDERLINE ECG - EKG Impression: SINUS TACHYCARDIA EKG Impression: BORDERLINE R WAVE PROGRESSION, ANTERIOR LEADS EKG Impression: BORDERLINE T ABNORMALITIES, ANTERIOR LEADS Electronically Signed By: Lonny Colunga 01-Feb-2017 11:38:06
--- NOTE | 2017-02-01 13:19 | HOSPPROG ---
Hospitalist Progress Note Assessment/Plan: Patient is a 62-year-old male with a history of dementia and closed head injury , hemiplegia and stroke who was transferred from [facility]. He was admitted after several days of hematemesis and found to have a lot of blood in his stomach. He underwent upper endoscopy which revealed a gastric ulcer. Since then his hospitalization has been complicated with multiple issues including a DVT, loculated ascites and sepsis. # acute GI hemorrhage due to proximal gastric ulcer status post clipping; also esophageal ulcer seen * On PPI * Tolerating anticoagulation. # RLE DVT * IV heparin * Transition to Lovenox and Coumadin # Septic shock - ? source - aspiration PNA vs. UTI vs intra-abdominal. Had been on Levaquin. Evaluation has revealed loculated ascites as possible source and evidence of SBP * Antibiotics changed to Invanz yesterday * Id consulted as well as General surgery * Follow clinically on antibiotics * 10 days of IVabx and will re-image in [address] # Dysphagia - nectar thick # Acute respiratory failure s/p extubation -very wheezy - added Xopenex # euthyroid sick syndrome, elevated TSH with normal free T4 follow-up as outpatient # Tachycardia - ? ongoing sepsis, follow heart rate and vitals # Fecal impaction - stool ball 8cm * enema, bowel protocol # Back pain - suspect chronic * T-spine MRI negative * # TBI with hemiplegia # Hypernatremia - resolved # ARF - resolved # Dementia with metabolic encephalopathy - suspect baseline now Subjective: Pretty sleepy. Abdomen still distended Objective: Vital Signs Temp Pulse Resp BP Pulse Ox 36.8 C 109 H 14 106/68 96 02/01/17 11:45 02/01/17 11:45 02/01/17 11:45 02/01/17 11:45 02/01/17 11:45 Microbiology 01/26/17 22:55 Blood Culture - Final Blood 01/26/17 20:45 Blood Culture - Final Blood 01/29/17 14:30 Gram Stain - Final Peritoneal Fluid - Aspirate Laboratory Results 01/31/17 03:00 02/01/17 06:03 01/31/17 02/01/17 02/02/17 05:59 05:59 05:59 Intake Total 746 433 Balance 746 433 PT 16.1 SEC (12.0-15.0) H 01/28/17 05:30 INR 1.29 (0.83-1.16) H 01/28/17 05:30 - Physical Exam Constitutional: chronically ill appearing, uncomfortable Eyes: anicteric sclera Ears, Nose, Mouth, Throat: dry mucous membranes Cardiovascular: regular rate and rhythym Respiratory: no respiratory distress, reduced air movement Gastrointestinal: normoactive bowel sounds, tenderness, distension Psychiatric: flat affect ICD10 Worksheet Patient Problems: Problems Problem Status Onset GI bleed Acute Hypotension Acute
--- NOTE | 2017-02-01 14:29 | PCMIDPN ---
Assessment/Plan: Assessment/Plan: * Multiloculated ascites with question of superimposed SBP: Unclear etiology for ascites and presence of leukocytes with greater than 250 neutrophils in fluid. Cultures remain negative although obtained post antibiotic therapy. Plan 10 days of ertapenem empirically with repeat CT scan at close of therapy to reassess ascitic collections. 02/01/17 14:26 Subjective: Patient complains of back pain. No abdominal pain present. Objective: Vital Signs Temp Pulse Resp BP Pulse Ox 36.8 C 112 H 20 106/68 98 02/01/17 11:45 02/01/17 14:04 02/01/17 14:04 02/01/17 11:45 02/01/17 14:04 Microbiology 01/26/17 22:55 Blood Culture - Final Blood 01/26/17 20:45 Blood Culture - Final Blood 01/29/17 14:30 Gram Stain - Final Peritoneal Fluid - Aspirate Laboratory Results 01/31/17 03:00 02/01/17 06:03 01/31/17 02/01/17 02/02/17 05:59 05:59 05:59 Intake Total 746 433 Balance 746 433 ESR 26 MM/HR (0-20) H 01/28/17 05:30 Ertapenem # 4 Ascitic cultures no growth CT scan reviewed showing multiloculated ascites - Physical Exam General Appearance: alert, no apparent distress, other (Chronically ill- appearing) EENT: No scleral icterus, No thrush Cardiac/Chest: tachycardia Abdomen: non-tender, distended ICD10 Worksheet Patient Problems: Problems Problem Status Onset GI bleed Acute Hypotension Acute
[2017-02-01] MEDS: HEPARIN/DEXTROSE 500 ML IV SCH (16:37)
[2017-02-01] MEDS: WARFARIN SODIUM 5 MG TAB PO SCH (18:00)
[2017-02-01] MEDS: MELATONIN 3 MG TAB PO SCH (21:55)
[2017-02-01] MEDS: ENOXAPARIN 80 MG/0.8 ML SYR SC SCH (21:55)
[2017-02-01 22:33] LABS: POTASSIUM 4.1 mEq/L (3.5-5.2)
[2017-02-02] MEDS: LEVALBUTEROL 1.25 MG/3 ML DEYVIAL IH SCH ×3 (04:53→21:59)
[2017-02-02] MEDS: HYDROCODONE/APAP 5/325 TAB PO PRN ×2 (05:23→15:19)
[2017-02-02] MEDS: LEVOTHYROXINE 75 MCG TAB PO SCH (05:23)
[2017-02-02] MEDS: METOCLOPRAMIDE 10 MG/2 ML VIAL IVP SCH ×4 (05:28→23:47)
[2017-02-02 06:20] LABS: INR 1.22 (0.83-1.16); PROTIME(PATIENT) 15.4 SEC (12.0-15.0)
--- NOTE | 2017-02-02 09:15 | PCMIDPN ---
Assessment/Plan: Assessment/Plan: 1. Multiloculated ascitis/peritonitis: -peritoneal sbc 729 with neutraphil predominance. -Peritoneal cx (01/29/17)---with no org, with negative culture but patient has been on antibiotics since 01/19/17. See history below -Currently on invanz therapy -CT abd reviewed. -blood cx from 01/19 and 01/26 ngtd -Will need f/u Ct abd at the end of the week prior to discontinuation of antibiotics decision to ensure resolution and no other intervention necessary. Meds invanz 1g daily- 01/31/17---to present history of antibiotics: -Zosyn: (01/19/17- 01/23/17) + Vanco (01/19/17-01/21/17) -Ceftriaxone: 01/23/17- 01/27/17 -Clinda :(01/27/17- 01/29/17) + Levaquin (01/27/17- 01/29/17) Subjective: Afebrile. Eyes open, alert. indistinct language. Objective: Vital Signs Temp Pulse Resp BP Pulse Ox 37.3 C 106 H 18 107/68 96 02/02/17 07:53 02/02/17 07:53 02/02/17 07:53 02/02/17 07:53 02/02/17 07:53 Microbiology 01/29/17 14:30 Gram Stain - Final Peritoneal Fluid - Aspirate Body Fluid Culture - Final 01/26/17 22:55 Blood Culture - Final Blood 01/26/17 20:45 Blood Culture - Final Blood Laboratory Results 02/02/17 05:40 02/02/17 05:40 02/01/17 02/02/17 02/03/17 05:59 05:59 05:59 Intake Total 746 1143 Balance 746 1143 ESR 26 MM/HR (0-20) H 01/28/17 05:30 - Physical Exam General Appearance: alert, no apparent distress Respiratory: lungs clear Cardiac/Chest: regular rate, rhythm Extremities: swelling (Bilateral LE) Abdomen: normal bowel sounds, non-tender, distended Skin: No erythema ICD10 Worksheet Patient Problems: Problems Problem Status Onset GI bleed Acute Hypotension Acute
[2017-02-02] MEDS: ENOXAPARIN 80 MG/0.8 ML SYR SC SCH ×2 (09:37→20:48)
[2017-02-02] MEDS: PANTOPRAZOLE SODIUM 40 MG TAB PO SCH ×2 (09:37→20:48)
[2017-02-02] MEDS: POLYETHYLENE GLYCOL 3350 17 GM PKT PO SCH ×2 (09:38→20:48)
[2017-02-02] MEDS: ERTAPENEM 1 GM in NS 100 ML IV SCH (09:38)
[2017-02-02] MEDS: SENNOSIDES/DOCUSATE SODIUM TAB PO SCH ×2 (09:38→20:48)
[2017-02-02] MEDS: ESCITALOPRAM OXALATE 10 MG TAB PO SCH (09:38)
[2017-02-02] MEDS: CLINDAMYCIN 1% GEL TP SCH ×2 (09:55→20:49)
--- NOTE | 2017-02-02 15:05 | HOSPPROG ---
Hospitalist Progress Note Assessment/Plan: Patient is a 62-year-old male with a history of dementia and closed head injury , hemiplegia and stroke who was transferred from [facility]. He was admitted after several days of hematemesis and found to have a lot of blood in his stomach. He underwent upper endoscopy which revealed a gastric ulcer. Since then his hospitalization has been complicated with multiple issues including a DVT, loculated ascites and sepsis. # acute GI hemorrhage due to proximal gastric ulcer status post clipping; also esophageal ulcer seen * On PPI * Tolerating anticoagulation. # RLE DVT * IV heparin * Transition to Lovenox and Coumadin # Septic shock - ? source - aspiration PNA vs. UTI vs intra-abdominal. Had been on Levaquin. Evaluation has revealed loculated ascites as possible source and evidence of SBP * Antibiotics changed to Invanz 01/29 * Id consulted as well as General surgery * Follow clinically on antibiotics * 10 days of IVabx and will re-image in towards end of week to ensure improvement. difficult patient to assess clinically. # Dysphagia - nectar thick # Acute respiratory failure s/p extubation -very wheezy - added Xopenex # euthyroid sick syndrome, elevated TSH with normal free T4 follow-up as outpatient # Tachycardia - ? ongoing sepsis, follow heart rate and vitals # Fecal impaction - stool ball 8cm * enema, bowel protocol # Back pain - suspect chronic * T-spine MRI negative * # TBI with hemiplegia # Hypernatremia - resolved # ARF - resolved # Dementia with metabolic encephalopathy - suspect baseline now Disposed: Patient will eventually be return to [facility] for long-term care. Will continue IV antibiotics and reimage him with a CT scan of his abdomen and pelvis later this week, if his ascites issues are improving then he can finish his therapy and go back to [facility]. Subjective: No new complaints. Is mumbling but does answer some yes no questions appropriately. Objective: Vital Signs Temp Pulse Resp BP Pulse Ox 37.4 C 105 H 16 109/78 98 02/02/17 12:00 02/02/17 14:00 02/02/17 14:00 02/02/17 12:00 02/02/17 14:00 Microbiology 01/29/17 14:30 Gram Stain - Final Peritoneal Fluid - Aspirate Body Fluid Culture - Final Laboratory Results 02/02/17 05:40 02/02/17 05:40 02/01/17 02/02/17 02/03/17 05:59 05:59 05:59 Intake Total 746 1143 200 Balance 746 1143 200 PT 15.4 SEC (12.0-15.0) H 02/02/17 05:40 INR 1.22 (0.83-1.16) H 02/02/17 05:40 - Physical Exam Constitutional: chronically ill appearing Eyes: PERRL, anicteric sclera Cardiovascular: regular rate and rhythym, tachycardia Respiratory: no respiratory distress, no rales or rhonchi, expiratory wheeze Gastrointestinal: normoactive bowel sounds, tenderness (Mild tenderness no rebound or guarding), ascites, distension, No guarding, No rebound ICD10 Worksheet Patient Problems: Problems Problem Status Onset GI bleed Acute Hypotension Acute
[2017-02-02] MEDS: WARFARIN SODIUM 5 MG TAB PO SCH (15:19)
[2017-02-02 17:54] LABS: POTASSIUM 4.1 mEq/L (3.5-5.2)
[2017-02-02] MEDS: MELATONIN 3 MG TAB PO SCH (20:48)
[2017-02-03] MEDS: LEVALBUTEROL 1.25 MG/3 ML DEYVIAL IH SCH ×3 (05:39→22:00)
[2017-02-03] MEDS: METOCLOPRAMIDE 10 MG/2 ML VIAL IVP SCH ×2 (06:16→11:56)
[2017-02-03] MEDS: LEVOTHYROXINE 75 MCG TAB PO SCH (06:16)
[2017-02-03 06:41] LABS: INR 1.96 (0.83-1.16); PROTIME(PATIENT) 22.4 SEC (12.0-15.0)
[2017-02-03] MEDS: SENNOSIDES/DOCUSATE SODIUM TAB PO SCH (07:36)
[2017-02-03] MEDS: ESCITALOPRAM OXALATE 10 MG TAB PO SCH (07:38)
[2017-02-03] MEDS: PANTOPRAZOLE SODIUM 40 MG TAB PO SCH (07:39)
[2017-02-03] MEDS: ENOXAPARIN 80 MG/0.8 ML SYR SC SCH (07:40)
[2017-02-03] MEDS: CLINDAMYCIN 1% GEL TP SCH (08:17)
[2017-02-03] MEDS: POLYETHYLENE GLYCOL 3350 17 GM PKT PO SCH (08:18)
[2017-02-03 08:41] LABS: POTASSIUM 3.9 mEq/L (3.5-5.2)
[2017-02-03] MEDS ORDERED: POTASSIUM CL 10 MEQ TAB PO ONE (08:47)
[2017-02-03] MEDS: ERTAPENEM 1 GM in NS 100 ML IV SCH (10:00)
--- NOTE | 2017-02-03 12:51 | PCMIDPN ---
Assessment/Plan: Assessment: # Possible sepsis unclear source - asp PNA, SBP. Loculated ascites, unclear etiology. Today is my first exam but note persistent :tachy (but unclear baseline), Leukocytosis (last checked 01/31), low grade temps. O2 requirement better. Still with some diffuse abdominal pain today. Imaging reviewed CXR extremely low lung volumes, no focal infiltrate. CT 01/28: B lower lower lobe infiltrates with air bronchograms, extensive loculated ascites, debris w/i GB and biliary tree --continue ertapenem --await path review of peritoneal fluid --consider repeat paracentesis to trend fluid #s --repeat CBC in AM meds ertapenem #6 01/29 peritoneal fluid neg (on abx when collected) 01/26 blood cx (2) neg 01/19 blood cx (2) neg Discussed with Dr. Garcia Subjective: Large BM today Objective: Vital Signs Temp Pulse Resp BP Pulse Ox 36.8 C 119 H 18 113/74 93 02/03/17 11:13 02/03/17 11:13 02/03/17 11:13 02/03/17 11:13 02/03/17 11:13 Laboratory Results 02/02/17 05:40 02/03/17 08:20 02/02/17 02/03/17 02/04/17 05:59 05:59 05:59 Intake Total 1143 536 355 Balance 1143 536 355 ESR 26 MM/HR (0-20) H 01/28/17 05:30 - Physical Exam General Appearance: alert, no apparent distress, cachetic EENT: pale conjunctiva, poor dentition, No scleral icterus, No thrush Respiratory: other (very shallow inspirations), No accessory muscle use Cardiac/Chest: tachycardia Extremities: pedal edema Abdomen: normal bowel sounds, soft, tender, No distended, No rebound Skin: pallor, No rash Neuro/Psych: alert, other (difficult to understand but conversive) - Time Spent With Patient Time Spent with Patient: greater than 35 minutes Time Spent with Patient: Greater than 35 minutes spent on this patients care, greater than 50% of time spent counseling, educating, and coordinating care regarding the above mentioned plan. ICD10 Worksheet Patient Problems: Problems Problem Status Onset GI bleed Acute Hypotension Acute
[2017-02-03] MEDS ORDERED: SENNOSIDES/DOCUSATE SODIUM TAB PO PRN (12:56)
[2017-02-03] MEDS ORDERED: WARFARIN SODIUM 2.5 MG TAB PO SCH (16:00)
--- NOTE | 2017-02-03 16:44 | HOSPPROG ---
Hospitalist Progress Note Assessment/Plan: Patient is a 62-year-old male with a history of dementia and closed head injury , hemiplegia and stroke who was transferred from [facility]. He was admitted after several days of hematemesis and found to have a lot of blood in his stomach. He underwent upper endoscopy which revealed a gastric ulcer. Since then his hospitalization has been complicated with multiple issues including a DVT, loculated ascites and sepsis. # acute GI hemorrhage due to proximal gastric ulcer status post clipping; also esophageal ulcer seen - cont PPI - cont anticoagulation- monitor closely # RLE DVT- INR 1.96 - Transitioned to Lovenox and Coumadin # Septic shock - ? source - aspiration PNA vs. UTI vs intra-abdominal. Had been on Levaquin. CT abdomen( personally reviewed and interpreted) revealed loculated ascites - Antibiotics changed to Invanz 01/29 - Follow clinically on antibiotics- in peritoneal cytology doesn't show anything consider repeat paracentesis - 10 days of IV abx and will re-image in towards end of week to ensure improvement. difficult patient to assess clinically. # Dysphagia - nectar thick # Acute respiratory failure s/p extubation-less wheezy - oxygen saturations 93 % on 3 L - added Xopenex # euthyroid sick syndrome, elevated TSH with normal free T4 follow-up as outpatient # Tachycardia - ? ongoing sepsis vs. baseline with TBI - follow heart rate and vitals # Fecal impaction - stool ball 8cm- now with diarrhea - decreased bowel protocol # Back pain - suspect chronic- T-spine MRI negative # TBI with hemiplegia # Hypernatremia - resolved # ARF - resolved # Dementia with metabolic encephalopathy - suspect baseline now # Dispo- greater than 2 midnights as patient requiring IV antibiotics and close monitoring for recovering septic shock I have discussed case with infectious disease we will monitor peritoneal cytology- considering repeat paracentesis at this time to help guide antibiotic decisions Subjective: thirsty Objective: Vital Signs Temp Pulse Resp BP Pulse Ox 36.8 C 120 H 18 102/75 93 02/03/17 15:26 02/03/17 15:26 02/03/17 15:26 02/03/17 15:26 02/03/17 15:26 Laboratory Results 02/02/17 05:40 02/03/17 08:20 02/02/17 02/03/17 02/04/17 05:59 05:59 05:59 Intake Total 1143 536 355 Balance 1143 536 355 PT 22.4 SEC (12.0-15.0) H 02/03/17 06:26 INR 1.96 (0.83-1.16) H 02/03/17 06:26 - Physical Exam Constitutional: chronically ill appearing Eyes: anicteric sclera Ears, Nose, Mouth, Throat: dry mucous membranes Cardiovascular: regular rate and rhythym, tachycardia Respiratory: no respiratory distress, expiratory wheeze Gastrointestinal: normoactive bowel sounds, tenderness, No guarding, No rebound Genitourinary: no bladder fullness Skin: warm, normal color Musculoskeletal: other ( 3+ lower extremity edema), No asymmetric calves Neurologic: No AAOx3 Psychiatric: No agitated Lymph, Heme, Immunologic: no cervical LAD ICD10 Worksheet Patient Problems: Problems Problem Status Onset GI bleed Acute Hypotension Acute
[2017-02-03] MEDS: HYDROCODONE/APAP 5/325 TAB PO PRN (20:16)
[2017-02-04] MEDS: POLYETHYLENE GLYCOL 3350 17 GM PKT PO SCH ×3 (01:04→21:40)
[2017-02-04] MEDS: MELATONIN 3 MG TAB PO SCH ×2 (01:04→21:37)
[2017-02-04] MEDS: PANTOPRAZOLE SODIUM 40 MG TAB PO SCH ×3 (01:04→21:37)
[2017-02-04] MEDS: CLINDAMYCIN 1% GEL TP SCH ×3 (01:04→23:51)
[2017-02-04] MEDS: ENOXAPARIN 80 MG/0.8 ML SYR SC SCH (01:04)
[2017-02-04] MEDS: HYDROCODONE/APAP 5/325 TAB PO PRN (02:12)
[2017-02-04] MEDS: LEVALBUTEROL 1.25 MG/3 ML DEYVIAL IH SCH ×3 (03:04→22:42)
[2017-02-04] MEDS: LEVOTHYROXINE 75 MCG TAB PO SCH (04:56)
[2017-02-04 05:19] LABS: % IMMATURE GRANULYOCYTES 0.7 % (0.0-1.1); ABSOLUTE IMMATURE GRANULOCYTES 0.07 10^3/uL (0.00-0.10); ADD DIFF? NO; ADD MORPH? NO; ADD SCAN? NO; ATYPICAL LYMPHOCYTE FLAG 40 (0-99); FRAGMENT RBC FLAG 0 (0-99); HEMATOCRIT 29.8 % (40.0-51.0); HEMOGLOBIN 9.8 g/dL (13.7-17.5); LEFT SHIFT FLG 0 (0-99); LIPEMIA HEMOLYSIS FLAG 80 (0-99); MEAN CELL HEMOGLOBIN 29.1 pg (27.9-34.1); MEAN CELL HEMOGLOBIN CONCENTR. 32.9 g/dL (32.4-36.7); MEAN CELL VOLUME 88.4 fL (81.5-99.8); MEAN PLATELET VOLUME 9.1 fL (8.7-11.7); PLATELET CLUMPS FLAG 0 (0-99); PLATELET COUNT 270 10^3/uL (150-400); RED BLOOD CELL COUNT 3.37 10^6/uL (4.40-6.38); RED CELL DISTRIBUTION WIDTH 14.7 % (11.5-15.2)
[2017-02-04 05:29] LABS: INR 2.44 (0.83-1.16); PROTIME(PATIENT) 26.7 SEC (12.0-15.0)
[2017-02-04 05:44] LABS: ANION GAP 5 mEq/L (8-16); CALCIUM 7.6 mg/dL (8.5-10.4); CARBON DIOXIDE 29 mEq/l (22-31); CHLORIDE 100 mEq/L (97-110); CREATININE 0.5 mg/dL (0.7-1.3); GLOMERULAR FILTRATION RATE > 60; GLUCOSE 91 mg/dL (70-100); POTASSIUM 4.2 mEq/L (3.5-5.2); SODIUM 134 mEq/L (134-144)
[2017-02-04] MEDS: ERTAPENEM 1 GM in NS 100 ML IV SCH (08:50)
[2017-02-04] MEDS: ESCITALOPRAM OXALATE 10 MG TAB PO SCH (09:02)
--- NOTE | 2017-02-04 14:06 | PCMIDPN ---
Assessment/Plan: Assessment: Probable spontaneous bacterial peritonitis. Cultures of the abdominal collection fluid negative probably due to the empiric course of antibiotics the patient had during the 1st 4 days of admission. Would cover empirically with ertapenem for 10-14 days then DC. Will have to re-image the area to see resolution of the loculated ascites. Patient's underlying mental status makes it difficult to clinically assess. Plan: 1. Continue ertapenem. 2. Plan repeat CT scan for follow-up in approximately 4-6 days. 02/04/17 21:33 Subjective: Patient resting in bed. Limited communication ability at baseline. Able to say that moderate palpation of his abdomen is still painful. No fevers. Objective: ertapenem #7 Vital Signs Temp Pulse Resp BP Pulse Ox 37.2 C 111 H 18 102/73 95 02/04/17 11:26 02/04/17 13:55 02/04/17 13:55 02/04/17 11:26 02/04/17 13:55 Laboratory Results 02/04/17 05:00 02/04/17 05:00 02/03/17 02/04/17 02/05/17 05:59 05:59 05:59 Intake Total 536 1323 120 Balance 536 1323 120 ESR 26 MM/HR (0-20) H 01/28/17 05:30 - Physical Exam General Appearance: WD/WN, alert, no apparent distress, non-toxic Respiratory: lungs clear, normal breath sounds, No respiratory distress Cardiac/Chest: regular rate, rhythm, tachycardia Abdomen: soft, distended, No non-tender, No mass Skin: normal color, warm/dry, No rash Neuro/Psych: alert ICD10 Worksheet Patient Problems: Problems Problem Status Onset GI bleed Acute Hypotension Acute
--- NOTE | 2017-02-04 15:40 | HOSPPROG ---
Hospitalist Progress Note Assessment/Plan: Patient is a 62-year-old male with a history of dementia and closed head injury , hemiplegia and stroke who was transferred from [facility]. He was admitted after several days of hematemesis and found to have a lot of blood in his stomach. He underwent upper endoscopy which revealed a gastric ulcer. Since then his hospitalization has been complicated with multiple issues including a DVT, loculated ascites and sepsis. # acute GI hemorrhage due to proximal gastric ulcer status post clipping; also esophageal ulcer seen - cont PPI - cont anticoagulation- monitor closely # RLE DVT- INR 1.96- 2.44 this am - cont Lovenox - monitor Coumadin closely # Septic shock - ? source - aspiration PNA vs. UTI vs intra-abdominal. Had been on Levaquin. CT abdomen (personally reviewed and interpreted) revealed loculated ascites - Antibiotics changed to Invanz 01/29 - Follow clinically on antibiotics- in peritoneal cytology doesn't show anything consider repeat paracentesis - 10 days of IV abx and will re-image in towards end of week to ensure improvement. difficult patient to assess clinically. # Acute respiratory failure s/p extubation-less wheezy - CXR ( personally reviewed and interpreted) platelike atelectasis with bilateral effusions oxygen saturations 93% on 1-3L - added Xopenex # Tachycardia - ? ongoing sepsis vs. baseline with TBI - follow heart rate and vitals # euthyroid sick syndrome, elevated TSH with normal free T4 follow-up as outpatient # Fecal impaction - stool ball 8cm- now with diarrhea - decreased bowel protocol # Back pain - suspect chronic- T-spine MRI negative # TBI with hemiplegia # Hypernatremia - resolved # ARF - resolved # Dysphagia - nectar thick # Dementia with metabolic encephalopathy - suspect baseline now # Dispo- greater than 2 midnights as patient requiring IV antibiotics and close monitoring for recovering septic shock I have discussed case with ID - continue Invanz will need repeat CT imaging in the future Subjective: consistently thirsty Objective: Vital Signs Temp Pulse Resp BP Pulse Ox 37.2 C 111 H 18 102/73 95 02/04/17 11:26 02/04/17 13:55 02/04/17 13:55 02/04/17 11:26 02/04/17 13:55 Laboratory Results 02/04/17 05:00 02/04/17 05:00 02/03/17 02/04/17 02/05/17 05:59 05:59 05:59 Intake Total 536 1323 120 Balance 536 1323 120 PT 26.7 SEC (12.0-15.0) H 02/04/17 05:00 INR 2.44 (0.83-1.16) H 02/04/17 05:00 ICD10 Worksheet Patient Problems: Problems Problem Status Onset GI bleed Acute Hypotension Acute
[2017-02-04] MEDS ORDERED: WARFARIN SODIUM 3 MG TAB PO ONE (16:00)
[2017-02-04] MEDS ORDERED: WARFARIN SODIUM 2 MG TAB PO SCH (16:00)
[2017-02-05] MEDS: HYDROCODONE/APAP 5/325 TAB PO PRN (05:17)
[2017-02-05] MEDS: LEVOTHYROXINE 75 MCG TAB PO SCH (05:17)
[2017-02-05] MEDS: LEVALBUTEROL 1.25 MG/3 ML DEYVIAL IH SCH (06:22)
[2017-02-05 07:22] LABS: HEMATOCRIT 29.2 % (40.0-51.0); HEMOGLOBIN 9.5 g/dL (13.7-17.5); MEAN CELL HEMOGLOBIN 28.7 pg (27.9-34.1); MEAN CELL HEMOGLOBIN CONCENTR. 32.5 g/dL (32.4-36.7); MEAN CELL VOLUME 88.2 fL (81.5-99.8); RED BLOOD CELL COUNT 3.31 10^6/uL (4.40-6.38); RED CELL DISTRIBUTION WIDTH 14.4 % (11.5-15.2)
[2017-02-05 07:27] LABS: INR 2.96 (0.83-1.16); PROTIME(PATIENT) 31.2 SEC (12.0-15.0)
[2017-02-05] MEDS ORDERED: NS 1,000 ML IV ONE (08:41)
[2017-02-05] MEDS: ERTAPENEM 1 GM in NS 100 ML IV SCH (09:01)
[2017-02-05] MEDS: ESCITALOPRAM OXALATE 10 MG TAB PO SCH (09:06)
[2017-02-05] MEDS: POLYETHYLENE GLYCOL 3350 17 GM PKT PO SCH (09:08)
[2017-02-05] MEDS: PANTOPRAZOLE SODIUM 40 MG TAB PO SCH (09:08)
--- NOTE | 2017-02-05 09:50 | PDIAF ---
- Diagnosis Diagnosis: SBP Code Status: Do Not Resuscitate - Medication Management Discharge Medications: Medications to Continue on Transfer Bisacodyl [Dulcolax] 10 mg RC DAILY PRN 01/19/17 [Last Taken Unknown] Clindamycin 1% [Cleocin 1% Gel] 1 gm TP BID 01/19/17 [Last Taken Unknown] Ergocalciferol [Vitamin D2 (*)] 50,000 unit PO Q30D 01/19/17 [Last Taken Unknown ] Escitalopram Oxalate [Lexapro] 5 mg PO DAILY 01/19/17 [Last Taken Unknown] Herbals/Supplements -Info Only 1 ea PO DAILY 01/19/17 [Last Taken Unknown] Hydrocodone/APAP 5/325 [[place] 5/325 (*)] 1 tab PO Q6HRS PRN 01/19/17 [Last Taken Unknown] Hydrocodone/Acetaminophen [[place] 5/325 (*)] 2 each PO Q6 PRN 01/19/17 [Last Taken Unknown] Ibuprofen [Motrin (*)] 400 mg PO QID PRN 01/19/17 [Last Taken Unknown] Levothyroxine [Synthroid 75 mcg (*)] 75 mcg PO DAILY06 01/19/17 [Last Taken Unknown] Melatonin [Melatonin 3 MG (*)] 3 mg PO HS 01/19/17 [Last Taken Unknown] Multivitamins [Multivitamin (*)] 1 each PO MO 01/19/17 [Last Taken Unknown] Ondansetron HCl [Zofran] 4 mg PO Q6HRS PRN 01/19/17 [Last Taken Unknown] Sennosides/Docusate Sodium [Senna-Docusate Sodium Tablet] 2 each PO BID PRN [Last Taken Unknown] 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 PICC Care - Routine: Yes - Orders Diet Texture: Dysphagia 1 - Pureed, [place] Thick Liquids, Water Protocol, Meds Whole in Puree - Labs/Radiology CBC Date: 02/08/17 (once) CMP Date: 02/08/17 (once) Imaging Orders: CT abdomen/pelvis with contrast, schedule week of 02/08 Call or Fax Lab and Imaging Results to: [facility] [phone] - Follow Up Care Current Providers and Referrals: Dipti Hess MD [Medical Doctor] - 02/16/17 11:30 am Patient,NotPresent [Primary Care Provider] - As per Instructions
--- NOTE | 2017-02-05 09:57 | PDIAF ---
- Diagnosis Diagnosis: SBP Code Status: Do Not Resuscitate - Medication Management Discharge Medications: Medications to Continue on Transfer Bisacodyl [Dulcolax] 10 mg RC DAILY PRN 01/19/17 [Last Taken Unknown] Clindamycin 1% [Cleocin 1% Gel] 1 gm TP BID 01/19/17 [Last Taken Unknown] Ergocalciferol [Vitamin D2 (*)] 50,000 unit PO Q30D 01/19/17 [Last Taken Unknown ] Escitalopram Oxalate [Lexapro] 5 mg PO DAILY 01/19/17 [Last Taken Unknown] Herbals/Supplements -Info Only 1 ea PO DAILY 01/19/17 [Last Taken Unknown] Hydrocodone/APAP 5/325 [[place] 5/325 (*)] 1 tab PO Q6HRS PRN 01/19/17 [Last Taken Unknown] Ibuprofen [Motrin (*)] 400 mg PO QID PRN 01/19/17 [Last Taken Unknown] Levothyroxine [Synthroid 75 mcg (*)] 75 mcg PO DAILY06 01/19/17 [Last Taken Unknown] Melatonin [Melatonin 3 MG (*)] 3 mg PO HS 01/19/17 [Last Taken Unknown] Multivitamins [Multivitamin (*)] 1 each PO MO 01/19/17 [Last Taken Unknown] Ondansetron HCl [Zofran] 4 mg PO Q6HRS PRN 01/19/17 [Last Taken Unknown] Sennosides/Docusate Sodium [Senna-Docusate Sodium Tablet] 2 each PO BID PRN [Last Taken Unknown] Acetaminophen [Tylenol 325mg (*)] 650 mg PO Q4HRS PRN #0 tab 02/05/17 [Last Taken Unknown] Ertapenem [INVanz] 1 gm IV DAILY #2 vial 02/05/17 [Last Taken Unknown] Levalbuterol 1.25 mg [Xopenex 1.25MG Neb (*)] 1.25 mg IH Q8HRS #0 deyvial [Last Taken Unknown] Pantoprazole Sodium [Protonix 40mg (*)] 40 mg PO BID #0 tab 02/05/17 [Last Taken Unknown] Warfarin Sodium [Coumadin 1MG (*)] 1 mg PO DAILY16 #30 tab 02/05/17 [Last Taken Unknown] Retirement Antibiotics: ertapenem 1gm IV daily Retirement Antibiotic Stop Date: 02/08/17 Discharge Medications: Refer to the Discharge Home Medication list for PRN reason. PICC Care - Routine: Yes - Orders Services needed: Registered Nurse, Physical Therapy, Occupational Therapy Diet Texture: Dysphagia 1 - Pureed, [place] Thick Liquids, Water Protocol, Meds Whole in Puree - Labs/Radiology CBC Date: 02/08/17 (once) CMP Date: 02/08/17 (once) PT/INR Date: 02/06/17 (please check daily INR as uptitraing) Imaging Orders: CT abdomen/pelvis with contrast, schedule week of 02/08 Call or Fax Lab and Imaging Results to: [facility] [phone] - Follow Up Care Current Providers and Referrals: Dipti Hess MD [Medical Doctor] - 02/16/17 11:30 am Patient,NotPresent [Primary Care Provider] - As per Instructions
[2017-02-05 11:24] VITALS: BP 109/70; PULSE 96; RESP 16; TEMP 97.7; O2SAT 91
[2017-02-05] MEDS: CLINDAMYCIN 1% GEL TP SCH (11:53)
--- NOTE | 2017-02-05 16:33 | GDS ---
[f rep st] DISCHARGE SUMMARY DISCHARGE DIAGNOSES: 1. Acute upper gastrointestinal bleed secondary to gastric ulcerations, status post clipping. 2. Septic shock. Presumed secondary to intra-abdominal source such as spontaneous bacterial perito nitis. 3. Right lower extremity deep venous thrombosis. 4. Acute respiratory failure, status post extubation, thought secondary to atelectasis and effusion s. 5. Sinus tachycardia secondary to hypovolemia. 6. Euthyroid sick. 7. History of traumatic brain injury with hemiplegia. 8. Chronic dysphagia, on nectar thick liquids. 9. Dementia with metabolic encephalopathy. 10. Acute kidney injury secondary to sepsis. CONSULTATIVE SERVICES: 1. Infectious Disease. 2. General Surgery. 3. Gastroenterology. 4. Pulmonary Critical Care. PROCEDURES: 1. On 01/19/2017, patient had an EGD that showed gastric ulcerations with stigmata of active bleedi ng, status post clipping, as well as esophageal ulcerations. 2. On 01/20/2017, patient had a CT of abdomen that showed bilateral atelectasis and pleural effusio n. 3. On 01/24/2017, patient had a CTA of the chest that showed no pulmonary embolism and new ascites. 4. On 01/28/2017, patient had repeat abdominal CT which showed dense consolidation consistent with possible pneumonia, and new loculated abdominal ascites. HOSPITAL COURSE BY ISSUE: 1. Acute upper GI bleed secondary to gastric ulcerations: Patient was initiated on twice daily PPI and had anticoagulation held. The patient remained stable on treatment, and had safe re-initiation of his blood thinners with an H and H stable at 9 and 29 on the day of disposition with an INR of 2 .96. 2. Sepsis secondary to presumed intra-abdominal source and/or pneumonia: Patient received IV antib iotics with Invanz during this hospital stay. He will complete a 10-day course of Invanz at the [facility] and follow in the outpatient setting with Infectious Disease. 3. Acute kidney injury presumed secondary to sepsis: Patient received fluid resuscitation. Had no rmal renal function on day of disposition. 4. Right lower extremity DVT: As above, the patient had anticoagulation held and then re-initiated safely. On the day of disposition, INR is 2.96. We are sending the patient on 1 mg of Coumadin to have this medication titrated with daily INRs by the [facility] physician. 5. Sinus tachycardia: This resolved with fluid resuscitation. 6. Euthyroid sick: The patient was started on 75 mcg of levothyroxine. Should have his TSH checke d in 6 weeks time. 7. TBI: Patient receive supportive care. He is being discharged to his alf facility. MEDICATIONS AT THE TIME OF DISPOSITION: Please reference medication reconciliation printed on 02/05. FOLLOWUP APPOINTMENTS: Include with Infectious Disease on 02/16/2017, and with the [facility] pro vider as needed for ongoing management of his medical comorbidities. PENDING STUDIES AT TIME OF DICTATION: None. TIME SPENT: I spent greater than 30 minutes in the planning and coordination of this discharge. /[id number]/MODL
== END 2017-02-05 13:04 | DRG 871 ==
LOC: F2N 12:18 → F3N 01-22 18:42 → F3E 02-02 16:02
PROVIDERS: ADMIT Internal Medicine; ATTEND Hospitalist
PROC: 0D9670Z Drainage of Stomach with Drainage Device, Via Natural or Artificial Opening (ICD-10-PCS; 2017-01-19)
PROC: 30233R1 Transfusion of Nonautologous Platelets into Peripheral Vein, Percutaneous Approach (ICD-10-PCS; 2017-01-19)
PROC: 30233K1 Transfusion of Nonautologous Frozen Plasma into Peripheral Vein, Percutaneous Approach (ICD-10-PCS; 2017-01-19)
PROC: 30233N1 Transfusion of Nonautologous Red Blood Cells into Peripheral Vein, Percutaneous Approach (ICD-10-PCS; 2017-01-19)
PROC: 0W3P8ZZ Control Bleeding in Gastrointestinal Tract, Via Natural or Artificial Opening Endoscopic (ICD-10-PCS; principal; 2017-01-19 12:15)
PROC: 5A1945Z Respiratory Ventilation, 24-96 Consecutive Hours (ICD-10-PCS; principal; 2017-01-19 12:15)
PROC: 0DB68ZX Excision of Stomach, Via Natural or Artificial Opening Endoscopic, Diagnostic (ICD-10-PCS; principal; 2017-01-19 12:15)
PROC: 02HV33Z Insertion of Infusion Device into Superior Vena Cava, Percutaneous Approach (ICD-10-PCS; 2017-01-26)
PROC: 0W9G3ZX Drainage of Peritoneal Cavity, Percutaneous Approach, Diagnostic (ICD-10-PCS; 2017-01-29)
DX: A41.9 Sepsis, unspecified organism (principal); R65.21 Severe sepsis with septic shock; J18.9 Pneumonia, unspecified organism; K65.2 Spontaneous bacterial peritonitis; J96.00 Acute respiratory failure, unspecified whether with hypoxia or hypercapnia; N17.9 Acute kidney failure, unspecified; G93.41 Metabolic encephalopathy; K25.4 Chronic or unspecified gastric ulcer with hemorrhage; D62 Acute posthemorrhagic anemia; K22.10 Ulcer of esophagus without bleeding; I82.401 Acute embolism and thrombosis of unspecified deep veins of right lower extremity; R00.0 Tachycardia, unspecified; I95.9 Hypotension, unspecified; E86.1 Hypovolemia; J98.11 Atelectasis; R18.8 Other ascites; N39.0 Urinary tract infection, site not specified; R13.10 Dysphagia, unspecified; J90 Pleural effusion, not elsewhere classified; E87.0 Hyperosmolality and hypernatremia; G81.90 Hemiplegia, unspecified affecting unspecified side; K56.41 Fecal impaction; D69.59 Other secondary thrombocytopenia; F03.90 Unspecified dementia, unspecified severity, without behavioral disturbance, psychotic disturbance, mood disturbance, and anxiety; E07.81 Sick-euthyroid syndrome; Z87.820 Personal history of traumatic brain injury; Z86.73 Personal history of transient ischemic attack (TIA), and cerebral infarction without residual deficits
CPT/HCPCS: 82947-QW; 85520-90; 92507-GN; 92526-GN; 92610-GN; 92611-GN; 96365; A9585; C1751; G8996-GN-CJ; G8996-GN-CL; G8997-GN-CJ; G8998-GN-CJ; J0461; J0696; J1170; J1265; J1335; J1644; J1650; J2250; J2405; J2543; J2704; J2765; J2997; J3010; J3370; J3475; P9016; P9017; P9021; P9035; P9047; Q9967

== ENCOUNTER → 2017-02-15 | Outpatient (CLI) | payer OTHER, MEDICAID ==
[~2017-02-15] MED LIST: IOPAMIDOL (ISOVUE-300) 100 ML BTL IV ONE
== END ==
LOC: FIMAGING 10:37
PROVIDERS: ATTEND Internal Medicine Geriatric Medicine
DX: R63.4 Abnormal weight loss (principal); R18.8 Other ascites; I82.401 Acute embolism and thrombosis of unspecified deep veins of right lower extremity; F03.90 Unspecified dementia, unspecified severity, without behavioral disturbance, psychotic disturbance, mood disturbance, and anxiety; M48.56XA Collapsed vertebra, not elsewhere classified, lumbar region, initial encounter for fracture; R91.8 Other nonspecific abnormal finding of lung field; Z87.820 Personal history of traumatic brain injury
CPT/HCPCS: 74177; Q9967